=== PATIENT | female | born 1990 | race Caucasian/White ===

== ENCOUNTER 2016-09-03 15:43 | Outpatient (CLI) | payer MEDICAID ==
[2016-09-03 16:52] LABS: APPEARANCE,URINE SLIGHTLY-CLOUDY; BILIRUBIN,URINE NEGATIVE (NEGATIVE); GLUCOSE, URINE NEGATIVE (NEGATIVE); KETONES,URINE TRACE mg/dL (NEGATIVE); LEUKOCYTE ESTERASE,URINE LARGE (NEGATIVE); NITRITE,URINE NEGATIVE (NEGATIVE); PROTEIN,URINE 30 mg/dL (NEGATIVE)
[2016-09-03 17:20] LABS: URINE BARBITURATES SCREEN NEGATIVE; URINE METHADONE SCREEN NEGATIVE; URINE OPIATES LOW NEGATIVE; URINE PHENCYCLIDINE SCREEN NEGATIVE
== END 2016-09-03 17:08 | disposition home or self-care (01) ==
LOC: LC 15:43
PROVIDERS: ATTEND Obstetrics & Gynecology
PROC: 4A1HXCZ Monitoring of Products of Conception, Cardiac Rate, External Approach (ICD-10-PCS; principal; 2016-09-03)
DX: O26.893 Other specified pregnancy related conditions, third trimester (principal); R51 Headache; Z3A.29 29 weeks gestation of pregnancy
CPT/HCPCS: 80307; 81001

== ENCOUNTER 2016-10-24 09:26 | Outpatient (CLI) | payer MEDICAID ==
[2016-10-24 10:14] LABS: ABSOLUTE EOSINOPHILS # (AUTO) 0.1 10^3/uL (0.0-0.6); ABSOLUTE LYMPHOCYTES (AUTO) 1.5 10^3/uL (0.5-4.7); ABSOLUTE MONOCYTES (AUTO) 0.6 10^3/uL (0.1-1.4); ABSOLUTE NEUT (AUTO) 6.8 10^3/uL (1.7-8.2); BASOPHILS % (AUTO) 0.4 % (0-2); EOSINOPHILS % (AUTO) 0.9 % (0-6); HEMATOCRIT 34.8 % (36.0-47.0); HGB HCT DIFFERENCE 1.2; LYMPHOCYTES % (AUTO) 17.2 % (13-45); MEAN CORPUSCULAR HEMOGLOBIN 29.2 pg (27.0-33.4); MEAN CORPUSCULAR HGB CONC 34.5 g/dL (32.0-36.0); MEAN CORPUSCULAR VOLUME 85 fl (80-97); MONOCYTES % (AUTO) 6.3 % (3-13); RED BLOOD COUNT 4.11 10^6/uL (3.72-5.28); RED CELL DISTRIBUTION WIDTH 13.2 % (11.5-14.0); SEGMENTED NEUTROPHILS % (AUTO) 75.2 % (42-78)
--- NOTE | 2016-10-24 10:18 | Non Stress Test Report ---
Non Stress Test Datetime Report Generated by CPN: 10/24/2016 10:18 DEMOGRAPHIC EGA NST: 37.1 INDICATION Indication for Study (NST) Other: pre-e workup MONITORING Monitor Explained: Monitor Explained; Test Explained; Patient Verbalized Understanding Time on Monitor: 10/24/2016 09:41 Time off Monitor: 10/24/2016 10:03 NST Duration: 22 NST INTERVENTIONS NST Interventions: PO Hydration; Reposition Patient Physician Notified NST: J. Lehman CNM BABY A: [id number] BABY A Movement : Present Contraction Frequency : none FHR Baseline : 140 Accelerations : 15X15 Decelerations : None Variability : Moderate 6-25bpm NST Review: Meets Criteria for Reactive NST NST Review and Verified By : Chelsie Mcdonald RN NST Results: Reactive NST REPORT Report Trigger: Send Report
[2016-10-24 10:25] LABS: APPEARANCE,URINE SLIGHTLY-CLOUDY; BILIRUBIN,URINE NEGATIVE (NEGATIVE); GLUCOSE, URINE NEGATIVE (NEGATIVE); KETONES,URINE TRACE mg/dL (NEGATIVE); LEUKOCYTE ESTERASE,URINE MODERATE (NEGATIVE); NITRITE,URINE NEGATIVE (NEGATIVE); PROTEIN,URINE 30 mg/dL (NEGATIVE); URINE SPECIFIC GRAVITY 1.032
[2016-10-24 10:41] LABS: ALANINE AMINOTRANSFERASE 19 U/L (9-52); ALBUMIN 3.4 g/dL (3.5-5.0); ALKALINE PHOSPHATASE 80 U/L (38-126); ANION GAP 10 (5-19); ASPARTATE AMINO TRANSFERASE 11 U/L (14-36); BILIRUBIN,DIRECT 0.2 mg/dL (0.0-0.4); BLOOD UREA NITROGEN 8 mg/dL (7-20); CALCIUM 9.2 mg/dL (8.4-10.2); CARBON DIOXIDE 21 mmol/L (22-30); CHLORIDE 109 mmol/L (98-107); CREATININE RESULT 0.46 mg/dL (0.52-1.25); GLUCOSE 85 mg/dL (75-110); LDH 370 U/L (313-618); SODIUM 139.7 mmol/L (137-145); TOTAL PROTEIN 6.3 g/dL (6.3-8.2); URIC ACID 3.8 mg/dL (2.5-6.2)
[2016-10-24 10:53] LABS: URINE BARBITURATES SCREEN NEGATIVE; URINE METHADONE SCREEN NEGATIVE; URINE OPIATES LOW NEGATIVE; URINE PHENCYCLIDINE SCREEN NEGATIVE
--- NOTE | 2016-10-24 14:02 | L&D Discharge Summary ---
OB Discharge Summary Datetime Report Generated by CPN: 10/24/2016 14:01 DISCHARGE DIAGNOSIS Diagnoses/Symptoms Other: No preeclampsia, not in labor, reactive NST Number of Babies in Womb: 1 Parity: 3 DIET/ACTIVITY/RESTRICTIONS Diet: Regular Activity: Normal Activity TEACHING/INSTRUCTIONS/REFERRALS Instructions Given To: Pt Instructions Understood: Patient Verbalized Understanding Referrals: None Educational Materials- Other: dehydration, pre-e, 24 hr urine DISCHARGE INFORMATION Discharged AMA: No Discharge Date/Time: 10/24/2016 10:57 Discharged To: Home Discharge Provider Name: Dr Kipen Accompanied By: self Discharge Method: Ambulatory Condition: Stable FOLLOW UP INFORMATION Follow Up With: [facility] Follow Up On: As Scheduled Follow Up Phone Number: [facility] -
--- NOTE | 2016-10-25 22:47 | L&D Current Admission ---
Current Admit Datetime Report Generated by CPN: 10/25/2016 22:45 ADMISSION INFORMATION Chief Complaint: Pt arrived from office for pre-eclampsia workup (10/24/2016 09:47:Gretchen Mcdonald RN)
--- NOTE | 2016-10-25 22:47 | Antepartum Discharge Summary ---
Antepartum DC Datetime Report Generated by CPN: 10/25/2016 22:45 DIET/ACTIVITY/RESTRICTIONS Diet: Regular (10/24/2016 10:58:Gretchen Mcdonald RN) Activity: Normal Activity (10/24/2016 10:58:Gretchen Mcdonald RN) TEACHING/INSTRUCTIONS/REFERRALS Instructions Given To: Pt (10/24/2016 10:58:Gretchen Mcdonald RN) Instructions Understood: Patient Verbalized Understanding (10/24/2016 10:58:Gretchen Mcdonald, RN) Referrals: None (10/24/2016 10:58:Gretchen Mcdonald RN) Educational Materials- Other: dehydration, pre-e, 24 hr urine (10/24/2016 10:58:Gretchen Mcdonald RN) DISCHARGE INFORMATION Discharged AMA: No (10/24/2016 10:58:Gretchen Mcdonald RN) Discharge Date/Time: 10/24/2016 10:57 (10/24/2016 10:58:Gretchen Mcdonald RN) Discharged To: Home (10/24/2016 10:58:Gretchen Mcdonald RN) Discharge Provider Name: Dr Wang (10/24/2016 10:58:Gretchen Mcdonald RN) Accompanied By: self (10/24/2016 10:58:Gretchen Mcdonald RN) Discharge Method: Ambulatory (10/24/2016 10:58:Gretchen Mcdonald RN) Condition: Stable (10/24/2016 10:58:Gretchen Mcdonald RN) FOLLOW UP INFORMATION Follow Up With: [facility] (10/24/2016 10:58:Gretchen Mcdonald RN) Follow Up On: As Scheduled (10/24/2016 10:58:Gretchen Mcdonald RN) Follow Up Phone Number: [facility] - (10/24/2016 10:58:Gretchen Mcdonald RN)
--- NOTE | 2016-10-25 22:47 | L&D Discharge Summary ---
OB Discharge Summary Datetime Report Generated by CPN: 10/25/2016 22:45 DISCHARGE DIAGNOSIS Diagnoses/Symptoms Other: No preeclampsia, not in labor, reactive NST Gestation: 37.1 Number of Babies in Womb: 1 Parity: 3 DIET/ACTIVITY/RESTRICTIONS Diet: Regular Activity: Normal Activity TEACHING/INSTRUCTIONS/REFERRALS Instructions Given To: Pt Instructions Understood: Patient Verbalized Understanding Referrals: None Educational Materials- Other: dehydration, pre-e, 24 hr urine DISCHARGE INFORMATION Discharged AMA: No Discharge Date/Time: 10/24/2016 10:57 Discharged To: Home Discharge Provider Name: Dr Wang Accompanied By: self Discharge Method: Ambulatory Condition: Stable FOLLOW UP INFORMATION Follow Up With: [facility] Follow Up On: As Scheduled Follow Up Phone Number: [facility] -
--- NOTE | 2016-10-25 22:47 | L&D General Admission ---
General Admit Datetime Report Generated by CPN: 10/25/2016 22:45 INFORMATION Patient Age: 25 (09/03/2016 15:44:QS system process) EDC: 11/13/2016 00:00 (10/24/2016 09:49:Gretchen Mcdonald RN) : 7 (10/24/2016 09:49:Gretchen Mcdonald RN) Para: 3 (10/24/2016 09:49:Gretchen Mcdonald RN) Term: 3 (10/24/2016 09:49:Gretchen Mcdonald RN) : 0 (10/24/2016 09:49:Gretchen Mcdonald RN) Spontaneous Abortions: 3 (10/24/2016 09:49:Gretchen Mcdonald RN) Induced Abortions: 0 (10/24/2016 09:49:Gretchen Mcdonald RN) Livin (10/24/2016 09:49:Gretchen Mcdonald RN) Cesareans: 0 (10/24/2016 09:49:Gretchen Mcdonald RN) VBACs: 0 (10/24/2016 09:49:Gretchen Mcdonald RN) Ectopic: 0 (10/24/2016 09:49:Gretchen Mcdonald RN) Multiple Births: 0 (10/24/2016 09:49:Gretchen Mcdonald RN) Baby, Number in Womb: 1 (10/24/2016 09:49:Gretchen Mcdonald RN) CARE Primary It 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: [email or web address] (10/24/2016 09:49:Gretchen Mcdonald RN) Height (in): 65 (10/24/2016 09:35:QS system process) Height (in): 64 (09/03/2016 16:54:QS system process) ALLERGIES Medication Allergy: No (10/24/2016 09:49:Gretchen Mcdonald RN) Medication Allergies: nickel/KS/rash (10/24/2016) (10/24/2016 09:35:QS system process) Medication Allergies: nickel/KS/rash (06/09/2015) (09/03/2016 15:44:QS system process) Latex Allergy: No Latex Allergies (10/24/2016 09:49:Gretchen Mcdonald RN) COMMUNICATION Primary Language: Lithuanian (10/24/2016 09:49:Gretchen Mcdonald RN) Medical Tx Preferred Language: Lithuanian (10/24/2016 09:49:Gretchen Mcdonald RN) DEMOGRAPHICS Address: [address] [place] [id number] (09/03/2016 15:44:QS system process) Zipcode: [phone] (09/03/2016 15:44:QS system process) Home (09/03/2016 15:44:QS system process) SSN: [id number] (09/03/2016 15:44:QS system process) Next of Kin Name: ELFEGO KONG (09/03/2016 15:44:QS system process) Next of Kin (09/03/2016 15:44:QS system process) Next of Kin Relationship: SPO (09/03/2016 15:44:QS system process) Date of : 1990 (09/03/2016 15:44:QS system process) Marital Status: (09/03/2016 15:44:QS system process) Sex: Female (09/03/2016 15:44:QS system process) Race: (09/03/2016 15:44:QS system process) Ethnicity: Non- or (09/03/2016 15:44:QS system process) Restorationism: None (09/03/2016 15:44:QS system process) DRUG AND ALCOHOL USE Alcohol: No (10/24/2016 09:49:Gretchen Mcdonald RN) Cigarettes: Current Some Day Smoker. [id number] (10/24/2016 09:49:Gretchen Mcdonald RN) Average Cigarettes Smoked: < 5 per day (10/24/2016 09:49:Gretchen Mcdonald RN) Advised to Stop Smoking: Yes (10/24/2016 09:49:Gretchen Mcdonald RN) Marijuana: No (10/24/2016 09:49:Gretchen Mcdonald RN) Cocaine: No (10/24/2016 09:49:Gretchen Mcdonald RN) Other Illicit Drugs: No (10/24/2016 09:49:Gretchen Mcdonald RN) VACCINE HISTORY Influenza Vaccine: No (10/24/2016 09:49:Gretchen Mcdonald RN) Pneumococcal Vaccine: No (10/24/2016 09:49:Gretchen Mcdonald RN) Tetanus Vaccine: No (10/24/2016 09:49:Gretchen Mcdonald RN) Tdap Vaccine: No (10/24/2016 09:49:Gretchen Mcdonald RN) Hepatitis B Vaccine: No (10/24/2016 09:49:Gretchen Mcdonald RN) Salt Grinder: [facility] (10/24/2016 09:49:Gretchen Mcdonald RN) Feeding Preference: Breast (10/24/2016 09:49:Gretchen Mcdonald RN) Benefit of Breast Feed Discussed: Yes (10/24/2016 09:49:Gretchen Mcdonald RN) Circumcision: N/A (10/24/2016 09:49:Gretchen Mcdonald RN) Classes Attended: No (10/24/2016 09:49:Gretchen Mcdonald RN) Tubal Ligation: No (10/24/2016 09:49:Gretchen Mcdonald RN) Tubal Authorization Signed: N/A (10/24/2016 09:49:Gretchen Mcdonald RN) Consent: N/A (10/24/2016 09:49:Gretchen Mcdonald RN) Consent Signed: N/A (10/24/2016 09:49:Gretchen Mcdonald RN) Pain Management Plans: None (10/24/2016 09:49:Gretchen Mcdonald RN) Other Labor and Delivery Plans: wants to try without Pitocin (10/24/2016 09:49:Gretchen Mcdonald RN) Support Person: Elfego Kong (10/24/2016 09:49:Gretchen Mcdonald RN) Support Person Relationship: (10/24/2016 09:49:Gretchen Mcdonald RN) Cultural/Spritual Practice: No (10/24/2016 09:49:Gretchen Mcdonald RN) Spir/Cult Dietary Needs: No (10/24/2016 09:49:Gretchen Mcdonald RN) LIVING SITUATION/DISCHARGE PLAN Living Arrangements: House (10/24/2016 09:49:Gretchen Mcdonald RN) Adequate Access to:: Electric; Heat; Refrigeration; Plumbing/Running water; Phone; Transportation (10/24/2016 09:49:Gretchen Mcdonald RN) WIC Program: Yes (10/24/2016 09:49:Gretchen Mcdonald RN) 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: ALEN (10/24/2016 09:49:Gretchen Mcdonald RN) Person to Help after Discharge: ALEN (10/24/2016 09:49:Gretchen Mcdonald RN) Currently Using Commun Resources: No (10/24/2016 09:49:Gretchen Mcdonald RN) Outside Agency/Studio Camera Operator: No (10/24/2016 09:49:Gretchen Mcdonald RN) Car Seat for Discharge: Yes (10/24/2016 09:49:Gretchen Mcdonald RN) Adoption Requested: No (10/24/2016 09:49:Gretchen Mcdonald RN) Pt Contact w/ Post : N/A (10/24/2016 09:49:Gretchen Mcdonald RN) LABS Blood Type: A Positive (10/24/2016 09:49:Gretchen Mcdonald RN) Antibody Screen: negative (10/24/2016 09:49:Gretchen Mcdonald RN) Hemoglobin: 12.0 (10/24/2016 09:56:QS system process) Hematocrit: 34.8 L (10/24/2016 09:56:QS system process) MCV: 85 (10/24/2016 09:56:QS system process) RPR/VDRL: Nonreactive (10/24/2016 09:49:Gretchen Mcdonald RN) HIV Exposure Test: Negative (10/24/2016 09:49:Gretchen Mcdonald RN) Hepatitis B: Negative (10/24/2016 09:49:Gretchen Mcdonald RN) Rubella: Immune (10/24/2016 09:49:Gretchen Mcdonald RN) Varicella: Non Susceptible (10/24/2016 09:49:Gretchen Mcdonald RN) OB/PREVIOUS HISTORY Previous Procedures: Ultrasound; NST (10/24/2016 09:49:Gretchen Mcdonald RN) Current Procedures: Ultrasound; NST (10/24/2016 09:49:Gretchen Mcdonald RN) History of Previous : No (10/24/2016 09:49:Gretchen Mcdonald RN) History of Gestational Diabetes: No (10/24/2016 09:49:Gretchen Mcdonald RN) History of PIH: Yes (10/24/2016 09:49:Gretchen Mcdonald RN) History of Incompetent Cervix: No (10/24/2016 09:49:Gretchen Mcdonald RN) History of Placenta Previa/Abrup: No (10/24/2016 09:49:Gretchen Mcdonald RN) History of Macrosomia: No (10/24/2016 09:49:Gretchen Mcdonald RN) History of IUGR: No (10/24/2016 09:49:Gretchen Mcdonald RN) History of Hemorrhage: No (10/24/2016 09:49:Gretchen Mcdonald RN) History of Loss/Stillborn: No (10/24/2016 09:49:Gretchen Mcdonald RN) History of : No (10/24/2016 09:49:Gretchen Mcdonald RN) History of D (Rh) Sensitization: No (10/24/2016 09:49:Gretchen Mcdonald RN) History Recurrent Loss/Stillborn: No (10/24/2016 09:49:Gretchen Mcdonald RN) History Depression/PP Depression: Yes (10/24/2016 09:49:Gretchen Mcdonald RN) History of Uterine Anomaly/TYREL: No (10/24/2016 09:49:Gretchen Mcdonald RN) History of Infertility: No (10/24/2016 09:49:Gretchen Mcdonald RN) History of ART Treatment: No (10/24/2016 09:49:Gretchen Mcdonald RN) History of TYREL: No (10/24/2016 09:49:Gretchen Mcdonald RN) Comments Obstetrical History: G1: 2007 G2: 2008 G3: 04/2009, induced pre-eclampsia G4: 01/2011 G5: SAB 2014 G6: 05/2015, HTN G7: current (10/24/2016 09:49:Gretchen Mcdonald RN) MEDICAL HISTORY Med Hx Diabetes: No (10/24/2016 09:49:Gretchen Mcdonald RN) Med Hx Hypertension: No (10/24/2016 09:49:Gretchen Mcdonald RN) Med Hx Heart Disease: No (10/24/2016 09:49:Gretchen Mcdonald RN) Med Hx Autoimmune Disorder: No (10/24/2016 09:49:Gretchen Mcdonald RN) Med Hx Kidney Disease/UTI: Yes (10/24/2016 09:49:Grecthen Mcdonald RN) Med Hx Neurologic/Epilepsy: No (10/24/2016 09:49:Gretchen Mcdonald RN) Med Hx Psychiatric Disorders: No (10/24/2016 09:49:Gretchen Mcdonald RN) Med Hx Hepatitis/Liver Disease: No (10/24/2016 09:49:Gretchen Mcdonald RN) Med Hx Varicosities/Phlebitis: No (10/24/2016 09:49:Gretchen Mcdonald RN) Med Hx Thyroid Dysfunction: No (10/24/2016 09:49:Gretchen Mcdonald RN) Med Hx Trauma/Violence: No (10/24/2016 09:49:Gretchen Mcdonald RN) Med Hx Blood Transfusion: No (10/24/2016 09:49:Gretchen Mcdonald RN) Med Hx Pulmonary (Asthma,TB): No (10/24/2016 09:49:Gretchen Mcdonald RN) Med Hx Breast: No (10/24/2016 09:49:Gretchen Mcdonald RN) Med 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 (10/24/2016 09:49:Gretchen Mcdonald RN) Med Hx Hospitalization/Surgery: Yes (10/24/2016 09:49:Gretchen Mcdonald RN) Med Hx Anesthetic Complications: No (10/24/2016 09:49:Gretchen Mcdonald RN) Med Hx Abnormal Pap Smear: No (10/24/2016 09:49:Gretchen Mcdonald RN) Other Medical Diseases: No (10/24/2016 09:49:Gretchen Mcdonald RN) Med Hx Significant Family Hx: No (10/24/2016 09:49:Gretchen Mcdonald RN) Details of Med/Surg Hx: tonsillectomy, D_C, tongue clipped for tongue tie, close spaced , chronic uti's, depression, depression, smoker, 2 LEEPS, CF carrier (10/24/2016 09:49:Gretchen Mcdonald RN) INFECTIOUS HISTORY Inf Hx Gonorrhea: No (10/24/2016 09:49:Gretchen Mcdonald RN) Inf Hx Chlamydia: No (10/24/2016 09:49:Gretchen Mcdonald RN) Inf Hx Syphilis: No (10/24/2016 09:49:Gretchen Mcdonald RN) Inf Hx HIV/AIDS: No (10/24/2016 09:49:Gretchen Mcdonald RN) Inf Hx Human Papilloma Virus: No (10/24/2016 09:49:Gretchen Mcdonald RN) Inf Hx Pt/Partner Genital Herpes: No (10/24/2016 09:49:Gretchen Mcdonald RN) Inf Hx Tuberculosis/Exposure: No (10/24/2016 09:49:Gretchen Mcdonald RN) Inf Hx Hepatitis B,C: No (10/24/2016 09:49:Gretchen Mcdonald RN) Inf Hx Rash or Viral Illness: No (10/24/2016 09:49:Gretchen Mcdonald RN) GENETIC HISTORY Gen Hx Age >=35 at KARIS: No (10/24/2016 09:49:Gretchen Mcdonald RN) Gen Hx Thalassemia: No (10/24/2016 09:49:Gretchen Mcdonald RN) Gen Hx Congenital Heart Defect: No (10/24/2016 09:49:Gretchen Mcdonald RN) Gen Hx Neural Tube Defect: No (10/24/2016 09:49:Gretchen Mcdonald RN) Gen Hx Down's Syndrome: No (10/24/2016 09:49:Gretchen Mcdonald RN) Gen Hx Merlin-Sachs: No (10/24/2016 09:49:Gretchen Mcdonald RN) Gen Hx Donn: No (10/24/2016 09:49:Gretchen Mcdonald RN) Gen Hx Familial Dysautonomia: No (10/24/2016 09:49:Gretchen Mcdonald RN) Gen Hx Sickle Cell Disease/Trait: No (10/24/2016 09:49:Gretchen Mcdonald RN) Gen Hx Hemophilia/Blood Disorder: No (10/24/2016 09:49:Gretchen Mcdonald RN) Gen Hx Muscular Dystrophy: No (10/24/2016 09:49:Gretchen Mcdonald RN) Gen Hx Cystic Fibrosis: Yes (10/24/2016 09:49:Gretchen Mcdonald RN) Gen Hx Huntingtons Chorea: No (10/24/2016 09:49:Gretchen Mcdonald RN) Gen Hx Mental Retardation/Autism: No (10/24/2016 09:49:Gretchen Mcdonald RN) Gen Hx Tested for Fragile X: No (10/24/2016 09:49:Gretchen Mcdonald RN) Gen Hx Other Inher/Chromosomal: No (10/24/2016 09:49:Gretchen Mcdonald RN) Gen Hx Maternal Metabolic DO: No (10/24/2016 09:49:Gretchen Mcdonald RN) Gen Hx Pt Father or FOB Defect: No (10/24/2016 09:49:Gretchen Mcdonald RN) Gen Hx Other Genetic History: No (10/24/2016 09:49:Gretchen Mcdonald RN) Gen Hx Drugs/Meds since LMP: Yes (10/24/2016 09:49:Gretchen Mcdonald RN) Gen Hx Medications: PNV, Nexium (10/24/2016 09:49:Gretchen Mcdonald RN) Details of Genetic History: Cousin has CF, pt is carrier, unknown if FOB is carrier (10/24/2016 09:49:Gretchen Mcdonald RN)
--- NOTE | 2016-10-26 04:47 | L&D Admission Assessment ---
LD ADM ASMT Datetime Report Generated by CPN: 10/26/2016 04:45 PATIENT ASSESSMENT Assessment Type: Triage (10/24/2016 09:47:Gretchen Mcdonald RN) WEIGHT Weight (lb): 196 (10/24/2016 09:36:QS system process) Weight (lb): 196 (10/24/2016 09:35:QS system process) Weight (kg): 89.1 (10/24/2016 09:36:QS system process) Weight (kg): 89.1 (10/24/2016 09:35:QS system process) BMI: 32.6 (10/24/2016 09:36:QS system process) BMI: 33.6 (10/24/2016 09:35:QS system process) PAIN Pain Scale: 0 (10/24/2016 09:47:Gretchen Mcdonald RN) Pain Presence: None/Denies (10/24/2016 09:47:Gretchen Mcdonald RN) Pain Type: N/A (10/24/2016 09:47:Gretchen Mcdonald RN) NEURO Level of Consciousness: Fully Conscious (10/24/2016 09:47:Gretchen Mcdonald RN) DTR's/Clonus: DTRs 2+; No Clonus (10/24/2016 09:47:Gretchen Mcdonald RN) Headache: Denies (10/24/2016 09:47:Gretchen Mcdonald RN) Dizziness: No (10/24/2016 09:47:Gretchen Mcdonald RN) Blurred Vision: No (10/24/2016 09:47:Gretchen Mcdonald RN) Extremity Numbness/Tingling : None (10/24/2016 09:47:Gretchen Mcdonald RN) Extremity Movement: Full Range of Motion (10/24/2016 09:47:Gretchen Mcdonald RN) CARDIOVASCULAR Heart Rhythm: Regular (10/24/2016 09:47:Gretchen Mcdonald RN) Nailbeds: [place] (10/24/2016 09:47:Gretchen Mcdonald RN) Capillary Refill: Less than 3 Seconds (10/24/2016 09:47:Gretchen Mcdonald RN) Facial Edema: None (10/24/2016 09:47:Gretchen Mcdonald RN) RESPIRATORY Respiratory Effort: Unlabored; Regular Rhythm; Equal Expansion (10/24/2016 09:47:Gretchen Mcdonald RN) Breath Sounds, Left: Clear and Equal (10/24/2016 09:47:Gretchen Mcdonald RN) Breath Sounds, Right: Clear and Equal (10/24/2016 09:47:Gretchen Mcdonald RN) Cough Productivity: None (10/24/2016 09:47:Gretchen Mcdonald RN) GASTROINTESTINAL Nausea/Vomiting: Present (10/24/2016 09:47:Gretchen Mcdonald RN) Bowel Sounds: Normoactive; All Quadrants (10/24/2016 09:47:Gretchen Mcdonald RN) RUQ Epigastric Pain: Denies (10/24/2016 09:47:Gretchen Mcdonald RN) Bowel Patterns: Diarrhea (10/24/2016 09:47:Gretchen Mcdonald RN) Hemorrhoids: None (10/24/2016 09:47:Gretchen Mcdonald RN) Diet Type: Regular diet (10/24/2016 09:47:Gretchen Mcdonald RN) Last Meal: 10/23/2016 20:30 (10/24/2016 09:47:Gretchen Mcdonald RN) GENITOURINARY Bladder: Nondistended (10/24/2016 09:47:Gretchen Mcdonald RN) Frequency of Urination: No (10/24/2016 09:47:Gretchen Mcdonald RN) Urination Burning: No (10/24/2016 09:47:Gretchen Mcdonald RN) CVA Tenderness: No (10/24/2016 09:47:Gretchen Mcdonald RN) Vaginal Bleeding: None (10/24/2016 09:47:Gretchen Mcdonald RN) Vaginal Discharge Color: N/A (10/24/2016 09:47:Gretchen Mcdonald RN) INTEGUMENTARY Skin Color: Normal for Race (10/24/2016 09:47:Gretchen Mcdonald RN) Skin Temperature: Warm (10/24/2016 09:47:Gretchen Mcdonald RN) Skin Moisture: Dry (10/24/2016 09:47:Gretchen Mcdonald RN) LUI SKIN ASSESSMENT Lui Scale Sensory Perception: No Impairment- Responds to verbal commands. Has no sensory deficit which would limit ability to feel or voice pain or discomfort (10/24/2016 09:47:Gretchen Mcdonald RN) Lui Scale Moisture: Rarely Moist- Skin is usually dry. Linen only requires changing at routine intervals (10/24/2016 09:47:Gretchen Mcdonald RN) Lui Scale Activity: Walks Frequently- Walks outside the room at least twice a day and inside room at least every 2 hours during the day. (10/24/2016 09:47:Gretchen Mcdonald RN) Lui Scale Mobility: No Limitations- Makes major and frequent changes in position without assistance (10/24/2016 09:47:Gretchen Mcdonald RN) Lui Scale Nutrition: Excellent- Eats most of every meal. Never refuses a meal. Usually eats a total of 4 or more servings of meat and dairy products. Occasionally eats between meals. Does not require supplementation (10/24/2016 09:47:Gretchen Mcdonald RN) Lui Scale Friction and Shear: No Apparent Problem- Moves in bed and in chair independently and has sufficient muscle strength to lift up completely during move. Maintains good position in bed or chair at all times (10/24/2016 09:47:Gretchen Mcdonald RN) Lui Scale Total: 23 (10/24/2016 09:47:QS system process) Lui Scale Risk: No Risk of Pressure Ulcer Noted at this Time (10/24/2016 09:47:QS system process) SUPPORT Emotional State: Calm/Relaxed (10/24/2016 09:47:Gretchen Mcdonald RN) SAFETY Call Garcia Within Reach: Yes (10/24/2016 09:47:Gretchen Mcdonald, RN) Side Rails Up: Yes (10/24/2016 09:47:Gretchen Mcdonald RN) Bed Wheels Locked: Yes (10/24/2016 09:47:Gretchen Mcdonald RN) Arm Bands Present: Yes (10/24/2016 09:47:Gretchen Mcdonald RN) FALL SCREEN Fall Risk History of Falling: (0) No (10/24/2016 09:47:Gretchen Mcdonald RN) Fall Risk Secondary Diagnosis: (0) No (10/24/2016 09:47:Gretchen Mcdonald RN) Fall Risk Ambulatory Aid: (0) None/Bedrest/Wheelchair/Nurse Assist (10/24/2016 09:47:Gretchen Mcdonald RN) Fall Risk IV Therapy: (0) No (10/24/2016 09:47:Gretchen Mcdonald RN) Fall Risk Gait: (0) Normal/Bedrest/Immobile (10/24/2016 09:47:Gretchen Mcdonald RN) Fall Risk Mental Status: (0) Oriented to Own Ability (10/24/2016 09:47:Gretchen Mcdonald RN) Fall Risk Score: 0 (10/24/2016 09:47:QS system process) Fall Risk Score Definition: No Risk: No action required (10/24/2016 09:47:QS system process) RECENT TRAVEL/INFECTIOUS DISEASE Recent Exp Communicable Disease: No (10/24/2016 09:47:Gretchen Mcdonald RN) Cough or Fever: No (10/24/2016 09:47:Gretchen Mcdonald RN) Foreign Travel Past 10 Days: No (10/24/2016 09:47:Gretchen Mcdonald RN) Open Wounds or Sores: No (10/24/2016 09:47:Gretchen Mcdonald RN) Prior Antibiotic Resistance Tx: No (10/24/2016 09:47:Gretchen Mcdonald RN) Cultures Obtained: Not Applicable (10/24/2016 09:47:Gretchen Mcdonald RN) Isolation Initiated: No (10/24/2016 09:47:Gretchen Mcdonald RN)
--- NOTE | 2016-10-26 04:47 | Antepartum Discharge Summary ---
Antepartum DC Datetime Report Generated by CPN: 10/26/2016 04:45 DIET/ACTIVITY/RESTRICTIONS Diet: Regular (10/24/2016 10:58:Gretchen Mcdonald RN) Activity: Normal Activity (10/24/2016 10:58:Gretchen Mcdonald RN) TEACHING/INSTRUCTIONS/REFERRALS Instructions Given To: Pt (10/24/2016 10:58:Gretchen Mcdonald RN) Instructions Understood: Patient Verbalized Understanding (10/24/2016 10:58:Gretchen Mcdonald, RN) Referrals: None (10/24/2016 10:58:Gretchen Mcdonald RN) Educational Materials- Other: dehydration, pre-e, 24 hr urine (10/24/2016 10:58:Gretchen Mcdonald RN) DISCHARGE INFORMATION Discharged AMA: No (10/24/2016 10:58:Gretchen Mcdonald RN) Discharge Date/Time: 10/24/2016 10:57 (10/24/2016 10:58:Gretchen Mcdonald RN) Discharged To: Home (10/24/2016 10:58:Gretchen Mcdonald RN) Discharge Provider Name: Dr Wang (10/24/2016 10:58:Gretchen Mcdonald RN) Accompanied By: self (10/24/2016 10:58:Gretchen Mcdonald RN) Discharge Method: Ambulatory (10/24/2016 10:58:Gretchen Mcdonald RN) Condition: Stable (10/24/2016 10:58:Gretchen Mcdonald RN) FOLLOW UP INFORMATION Follow Up With: [facility] (10/24/2016 10:58:Gretchen Mcdonald RN) Follow Up On: As Scheduled (10/24/2016 10:58:Gretchen Mcdonald RN) Follow Up Phone Number: [facility] - (10/24/2016 10:58:Gretchen Mcdonald RN)
--- NOTE | 2016-10-26 04:47 | L&D Current Admission ---
Current Admit Datetime Report Generated by CPN: 10/26/2016 04:45 ADMISSION INFORMATION Chief Complaint: Pt arrived from office for pre-eclampsia workup (10/24/2016 09:47:Gretchen Mcdonald RN)
--- NOTE | 2016-10-26 04:47 | L&D Discharge Summary ---
OB Discharge Summary Datetime Report Generated by CPN: 10/26/2016 04:45 DISCHARGE DIAGNOSIS Diagnoses/Symptoms Other: No preeclampsia, not in labor, reactive NST Gestation: 37.1 Number of Babies in Womb: 1 Parity: 3 DIET/ACTIVITY/RESTRICTIONS Diet: Regular Activity: Normal Activity TEACHING/INSTRUCTIONS/REFERRALS Instructions Given To: Pt Instructions Understood: Patient Verbalized Understanding Referrals: None Educational Materials- Other: dehydration, pre-e, 24 hr urine DISCHARGE INFORMATION Discharged AMA: No Discharge Date/Time: 10/24/2016 10:57 Discharged To: Home Discharge Provider Name: Dr Wang Accompanied By: self Discharge Method: Ambulatory Condition: Stable FOLLOW UP INFORMATION Follow Up With: [facility] Follow Up On: As Scheduled Follow Up Phone Number: [facility] -
--- NOTE | 2016-10-26 04:47 | L&D General Admission ---
General Admit Datetime Report Generated by CPN: 10/26/2016 04:45 INFORMATION Patient Age: 25 (09/03/2016 15:44:QS system process) EDC: 11/13/2016 00:00 (10/24/2016 09:49:Gretchen Mcdonald RN) : 7 (10/24/2016 09:49:Gretchen Mcdonald RN) Para: 3 (10/24/2016 09:49:Gretchen Mcdonald RN) Term: 3 (10/24/2016 09:49:Gretchen Mcdonald RN) : 0 (10/24/2016 09:49:Gretchen Mcdonald RN) Spontaneous Abortions: 3 (10/24/2016 09:49:Gretchen Mcdonald RN) Induced Abortions: 0 (10/24/2016 09:49:Gretchen Mcdonald RN) Livin (10/24/2016 09:49:Gretchen Mcdonald RN) Cesareans: 0 (10/24/2016 09:49:Gretchen Mcdonald RN) VBACs: 0 (10/24/2016 09:49:Gretchen Mcdonald RN) Ectopic: 0 (10/24/2016 09:49:Gretchen Mcdonald RN) Multiple Births: 0 (10/24/2016 09:49:Gretchen Mcdonald RN) Baby, Number in Womb: 1 (10/24/2016 09:49:Gretchen Mcdonald RN) 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: [facility] (10/24/2016 09:49:Gretchen Mcdonald RN) Height (in): 65 (10/24/2016 09:35:QS system process) Height (in): 64 (09/03/2016 16:54:QS system process) ALLERGIES Medication Allergy: No (10/24/2016 09:49:Gretchen Mcdonald RN) Medication Allergies: nickel/NM/rash (10/24/2016) (10/24/2016 09:35:QS system process) Medication Allergies: nickel/NM/rash (06/09/2015) (09/03/2016 15:44:QS system process) Latex Allergy: No Latex Allergies (10/24/2016 09:49:Gretchen Mcdonald RN) COMMUNICATION Primary Language: Spanish (10/24/2016 09:49:Gretchen Mcdonald RN) Medical Tx Preferred Language: Spanish (10/24/2016 09:49:Gretchen Mcdonald RN) DEMOGRAPHICS Address: [address] [place] [id number] (09/03/2016 15:44:QS system process) Zipcode: [phone] (09/03/2016 15:44:QS system process) Home (09/03/2016 15:44:QS system process) SSN: [id number] (09/03/2016 15:44:QS system process) Next of Kin Name: ELFEGO KONG (09/03/2016 15:44:QS system process) Next of Kin (09/03/2016 15:44:QS system process) Next of Kin Relationship: SPO (09/03/2016 15:44:QS system process) Date of : 1990 (09/03/2016 15:44:QS system process) Marital Status: (09/03/2016 15:44:QS system process) Sex: Female (09/03/2016 15:44:QS system process) Race: (09/03/2016 15:44:QS system process) Ethnicity: Non- or (09/03/2016 15:44:QS system process) Restoration: None (09/03/2016 15:44:QS system process) DRUG AND ALCOHOL USE Alcohol: No (10/24/2016 09:49:Gretchen Mcdonald RN) Cigarettes: Current Some Day Smoker. [id number] (10/24/2016 09:49:Gretchen Mcdonald RN) Average Cigarettes Smoked: < 5 per day (10/24/2016 09:49:Gretchen Mcdonald RN) Advised to Stop Smoking: Yes (10/24/2016 09:49:Gretchen Mcdonald RN) Marijuana: No (10/24/2016 09:49:Gretchen Mcdonald RN) Cocaine: No (10/24/2016 09:49:Gretchen Mcdonald RN) Other Illicit Drugs: No (10/24/2016 09:49:Gretchen Mcdonald RN) VACCINE HISTORY Influenza Vaccine: No (10/24/2016 09:49:Gretchen Mcdonald RN) Pneumococcal Vaccine: No (10/24/2016 09:49:Gretchen Mcdonald RN) Tetanus Vaccine: No (10/24/2016 09:49:Gretchen Mcdonald RN) Tdap Vaccine: No (10/24/2016 09:49:Gretchen Mcdonald RN) Hepatitis B Vaccine: No (10/24/2016 09:49:Gretchen Mcdonald RN) 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: [facility] (10/24/2016 09:49:Gretchen Mcdonald RN) Feeding Preference: Breast (10/24/2016 09:49:Gretchen Mcdonald RN) Benefit of Breast Feed Discussed: Yes (10/24/2016 09:49:Gretchen Mcdonald RN) Circumcision: N/A (10/24/2016 09:49:Gretchen Mcdonald RN) Classes Attended: No (10/24/2016 09:49:Gretchen Mcdonald RN) Tubal Ligation: No (10/24/2016 09:49:Gretchen Mcdonald RN) Tubal Authorization Signed: N/A (10/24/2016 09:49:Gretchen Mcdonald RN) Consent: N/A (10/24/2016 09:49:Gretchen Mcdonald RN) Consent Signed: N/A (10/24/2016 09:49:Gretchen Mcdonald RN) Pain Management Plans: None (10/24/2016 09:49:Gretchen Mcdonald RN) Other Labor and Delivery Plans: wants to try without Pitocin (10/24/2016 09:49:Gretchen Mcdonald RN) Support Person: Elfego Kong (10/24/2016 09:49:Gretchen Mcdonald RN) Support Person Relationship: (10/24/2016 09:49:Gretchen Mcdonald RN) Cultural/Spritual Practice: No (10/24/2016 09:49:Gretchen Mcdonald RN) Spir/Cult Dietary Needs: No (10/24/2016 09:49:Gretchen Mcdonald RN) LIVING SITUATION/DISCHARGE PLAN Living Arrangements: House (10/24/2016 09:49:Gretchen Mcdonald RN) Adequate Access to:: Electric; Heat; Refrigeration; Plumbing/Running water; Phone; Transportation (10/24/2016 09:49:Gretchen Mcdonald RN) WIC Program: Yes (10/24/2016 09:49:Gretchen Mcdonald RN) 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[employer] Person: ALEN (10/24/2016 09:49:Gretchen Mcdonald RN) Person to Help after Discharge: ALEN (10/24/2016 09:49:Gretchen Mcdonald RN) Currently Using Commun Resources: No (10/24/2016 09:49:Gretchen Mcdonald RN) Outside Agency/Assistant Infant Toddler Teacher: No (10/24/2016 09:49:Gretchen Mcdonald RN) Car Seat for Discharge: Yes (10/24/2016 09:49:Gretchen Mcdonald RN) Adoption Requested: No (10/24/2016 09:49:Gretchen Mcdonald RN) Pt Contact w/ Post : N/A (10/24/2016 09:49:Gretchen Mcdonald RN) LABS Blood Type: A Positive (10/24/2016 09:49:Gretchen Mcdonald RN) Antibody Screen: negative (10/24/2016 09:49:Gretchen Mcdonald RN) Hemoglobin: 12.0 (10/24/2016 09:56:QS system process) Hematocrit: 34.8 L (10/24/2016 09:56:QS system process) MCV: 85 (10/24/2016 09:56:QS system process) RPR/VDRL: Nonreactive (10/24/2016 09:49:Gretchen Mcdonald RN) HIV Exposure Test: Negative (10/24/2016 09:49:Gretchen Mcdonald RN) Hepatitis B: Negative (10/24/2016 09:49:Gretchen Mcdonald RN) Rubella: Immune (10/24/2016 09:49:Gretchen Mcdonald RN) Varicella: Non Susceptible (10/24/2016 09:49:Gretchen Mcdonald RN) OB/PREVIOUS HISTORY Previous Procedures: Ultrasound; NST (10/24/2016 09:49:Gretchen Mcdonald RN) Current Procedures: Ultrasound; NST (10/24/2016 09:49:Gretchen Mcdonald RN) History of Previous : No (10/24/2016 09:49:Gretchen Mcdonald RN) History of Gestational Diabetes: No (10/24/2016 09:49:Gretchen Mcdonald RN) History of PIH: Yes (10/24/2016 09:49:Gretchen Mcdonald RN) History of Incompetent Cervix: No (10/24/2016 09:49:Gretchen Mcdonald RN) History of Placenta Previa/Abrup: No (10/24/2016 09:49:Gretchen Mcdonald RN) History of Macrosomia: No (10/24/2016 09:49:Gretchen Mcdonald RN) History of IUGR: No (10/24/2016 09:49:Gretchen Mcdonald RN) History of Hemorrhage: No (10/24/2016 09:49:Gretchen Mcdonald RN) History of Loss/Stillborn: No (10/24/2016 09:49:Gretchen Mcdonald RN) History of : No (10/24/2016 09:49:Gretchen Mcdonald RN) History of D (Rh) Sensitization: No (10/24/2016 09:49:Gretchen Mcdonald RN) History Recurrent Loss/Stillborn: No (10/24/2016 09:49:Gretchen Mcdonald RN) History Depression/PP Depression: Yes (10/24/2016 09:49:Gretchen Mcdonald RN) History of Uterine Anomaly/TYREL: No (10/24/2016 09:49:Gretchen Mcdonald RN) History of Infertility: No (10/24/2016 09:49:Gretchen Mcdonald RN) History of ART Treatment: No (10/24/2016 09:49:Gretchen Mcdonald RN) History of TYREL: No (10/24/2016 09:49:Gretchen Mcdonald RN) Comments Obstetrical History: G1: 2007 G2: 2008 G3: 04/2009, induced pre-eclampsia G4: 01/2011 G5: SAB 2014 G6: 05/2015, HTN G7: current (10/24/2016 09:49:Gretchen Mcdonald RN) MEDICAL HISTORY Med Hx Diabetes: No (10/24/2016 09:49:Gretchen Mcdonald RN) Med Hx Hypertension: No (10/24/2016 09:49:Gretchen Mcdonald RN) Med Hx Heart Disease: No (10/24/2016 09:49:Gretchen Mcdonald RN) Med Hx Autoimmune Disorder: No (10/24/2016 09:49:Gretchen Mcdonald RN) Med Hx Kidney Disease/UTI: Yes (10/24/2016 09:49:Gretchen Mcdonald RN) Med Hx Neurologic/Epilepsy: No (10/24/2016 09:49:Gretchen Mcdonald RN) Med Hx Psychiatric Disorders: No (10/24/2016 09:49:Gretchen Mcdonald RN) Med Hx Hepatitis/Liver Disease: No (10/24/2016 09:49:Gretchen Mcdonald RN) Med Hx Varicosities/Phlebitis: No (10/24/2016 09:49:Gretchen Mcdonald RN) Med Hx Thyroid Dysfunction: No (10/24/2016 09:49:Gretchen Mcdonald RN) Med Hx Trauma/Violence: No (10/24/2016 09:49:Gretchen Mcdonald RN) Med Hx Blood Transfusion: No (10/24/2016 09:49:Gretchen Mcdonald RN) Med Hx Pulmonary (Asthma,TB): No (10/24/2016 09:49:Gretchen Mcdonald RN) Med Hx Breast: No (10/24/2016 09:49:Gretchen Mcdonald RN) Med Hx BLOCKER POLISHING Surgery: Yes (10/24/2016 09:49:Gretchen Mcdonald RN) Med Hx Hospitalization/Surgery: Yes (10/24/2016 09:49:Gretchen Mcdonald RN) Med Hx Anesthetic Complications: No (10/24/2016 09:49:Gretchen Mcdonald RN) Med Hx Abnormal Pap Smear: No (10/24/2016 09:49:Gretchen Mcdonald RN) Other Medical Diseases: No (10/24/2016 09:49:Gretchen Mcdonald RN) Med Hx Significant Family Hx: No (10/24/2016 09:49:Gretchen Mcdonald RN) Details of Med/Surg Hx: tonsillectomy, D_C, tongue clipped for tongue tie, close spaced , chronic uti's, depression, depression, smoker, 2 LEEPS, CF carrier (10/24/2016 09:49:Gretchen Mcdonald RN) INFECTIOUS HISTORY Inf Hx Gonorrhea: No (10/24/2016 09:49:Gretchen Mcodnald RN) Inf Hx Chlamydia: No (10/24/2016 09:49:Gretchen Mcdonald RN) Inf Hx Syphilis: No (10/24/2016 09:49:Gretchen Mcdonald RN) Inf Hx HIV/AIDS: No (10/24/2016 09:49:Gretchen Mcdonald RN) Inf Hx Human Papilloma Virus: No (10/24/2016 09:49:Gretchen Mcdonald RN) Inf Hx Pt/Partner Genital Herpes: No (10/24/2016 09:49:Gretchen Mcdonald RN) Inf Hx Tuberculosis/Exposure: No (10/24/2016 09:49:Gretchen Mcdonald RN) Inf Hx Hepatitis B,C: No (10/24/2016 09:49:Gretchen Mcdonald RN) Inf Hx Rash or Viral Illness: No (10/24/2016 09:49:Gretchen Mcdonald RN) GENETIC HISTORY Gen Hx Age >=35 at KARIS: No (10/24/2016 09:49:Gretchen Mcdonald RN) Gen Hx Thalassemia: No (10/24/2016 09:49:Gretchen Mcdonald RN) Gen Hx Congenital Heart Defect: No (10/24/2016 09:49:Gretchen Mcdonald RN) Gen Hx Neural Tube Defect: No (10/24/2016 09:49:Gretchen Mcdonald RN) Gen Hx Down's Syndrome: No (10/24/2016 09:49:Gretchen Mcdonald RN) Gen Hx Merlin-Sachs: No (10/24/2016 09:49:Gretchen Mcdonald RN) Gen Hx Donn: No (10/24/2016 09:49:Gretchen Mcdonald RN) Gen Hx Familial Dysautonomia: No (10/24/2016 09:49:Gretchen Mcdonald RN) Gen Hx Sickle Cell Disease/Trait: No (10/24/2016 09:49:Gretchen Mcdonald RN) Gen Hx Hemophilia/Blood Disorder: No (10/24/2016 09:49:Gretchen Mcdonald RN) Gen Hx Muscular Dystrophy: No (10/24/2016 09:49:Gretchen Mcdonald RN) Gen Hx Cystic Fibrosis: Yes (10/24/2016 09:49:Gretchen Mcdonald RN) Gen Hx Huntingtons Chorea: No (10/24/2016 09:49:Gretchen Mcdonald RN) Gen Hx Mental Retardation/Autism: No (10/24/2016 09:49:Gretchen Mcdonald RN) Gen Hx Tested for Fragile X: No (10/24/2016 09:49:Gretchen Mcdonald RN) Gen Hx Other Inher/Chromosomal: No (10/24/2016 09:49:Gretchen Mcdonald RN) Gen Hx Maternal Metabolic DO: No (10/24/2016 09:49:Gretchen Mcdonald RN) Gen Hx Pt Father or FOB Defect: No (10/24/2016 09:49:Gretchen Mcdonald RN) Gen Hx Other Genetic History: No (10/24/2016 09:49:Gretchen Mcdonald RN) Gen Hx Drugs/Meds since LMP: Yes (10/24/2016 09:49:Gretchen Mcdonald RN) Gen Hx Medications: PNV, Nexium (10/24/2016 09:49:Gretchen Mcdonald RN) Details of Genetic History: Cousin has CF, pt is carrier, unknown if FOB is carrier (10/24/2016 09:49:Gretchen Mcdonald RN)
--- NOTE | 2016-10-26 10:47 | L&D Discharge Summary ---
OB Discharge Summary Datetime Report Generated by CPN: 10/26/2016 10:45 DISCHARGE DIAGNOSIS Diagnoses/Symptoms Other: No preeclampsia, not in labor, reactive NST Gestation: 37.1 Number of Babies in Womb: 1 Parity: 3 DIET/ACTIVITY/RESTRICTIONS Diet: Regular Activity: Normal Activity TEACHING/INSTRUCTIONS/REFERRALS Instructions Given To: Pt Instructions Understood: Patient Verbalized Understanding Referrals: None Educational Materials- Other: dehydration, pre-e, 24 hr urine DISCHARGE INFORMATION Discharged AMA: No Discharge Date/Time: 10/24/2016 10:57 Discharged To: Home Discharge Provider Name: Dr Wang Accompanied By: self Discharge Method: Ambulatory Condition: Stable FOLLOW UP INFORMATION Follow Up With: [facility] Follow Up On: As Scheduled Follow Up Phone Number: [facility] -
--- NOTE | 2016-10-26 10:47 | Antepartum Discharge Summary ---
Antepartum DC Datetime Report Generated by CPN: 10/26/2016 10:45 DIET/ACTIVITY/RESTRICTIONS Diet: Regular (10/24/2016 10:58:Gretchen Mcdonald RN) Activity: Normal Activity (10/24/2016 10:58:Gretchen Mcdonald RN) TEACHING/INSTRUCTIONS/REFERRALS Instructions Given To: Pt (10/24/2016 10:58:Gretchen Mcdonald RN) Instructions Understood: Patient Verbalized Understanding (10/24/2016 10:58:Gretchen Mcdonald, RN) Referrals: None (10/24/2016 10:58:Gretchen Mcdonald RN) Educational Materials- Other: dehydration, pre-e, 24 hr urine (10/24/2016 10:58:Gretchen Mcdonald RN) DISCHARGE INFORMATION Discharged AMA: No (10/24/2016 10:58:Gretchen Mcdonald RN) Discharge Date/Time: 10/24/2016 10:57 (10/24/2016 10:58:Gretchen Mcdonald RN) Discharged To: Home (10/24/2016 10:58:Gretchen Mcdonald RN) Discharge Provider Name: Dr Wang (10/24/2016 10:58:Gretchen Mcdonald RN) Accompanied By: self (10/24/2016 10:58:Gretchen Mcdonald RN) Discharge Method: Ambulatory (10/24/2016 10:58:Gretchen Mcdonald RN) Condition: Stable (10/24/2016 10:58:Gretchen Mcdonald RN) FOLLOW UP INFORMATION Follow Up With: [facility] (10/24/2016 10:58:Gretchen Mcdonald RN) Follow Up On: As Scheduled (10/24/2016 10:58:Gretchen Mcdonald RN) Follow Up Phone Number: [facility] - (10/24/2016 10:58:Gretchen Mcdonald RN)
--- NOTE | 2016-10-26 10:47 | L&D Current Admission ---
Current Admit Datetime Report Generated by CPN: 10/26/2016 10:45 ADMISSION INFORMATION Chief Complaint: Pt arrived from office for pre-eclampsia workup (10/24/2016 09:47:Gretchen Mcdonald RN)
--- NOTE | 2016-10-26 10:47 | L&D General Admission ---
General Admit Datetime Report Generated by CPN: 10/26/2016 10:45 INFORMATION Patient Age: 25 (09/03/2016 15:44:QS system process) EDC: 11/13/2016 00:00 (10/24/2016 09:49:Gretchen Mcdonald RN) : 7 (10/24/2016 09:49:Gretchen Mcdonald RN) Para: 3 (10/24/2016 09:49:Gretchen Mcdonald RN) Term: 3 (10/24/2016 09:49:Gretchen Mcdonald RN) : 0 (10/24/2016 09:49:Gretchen Mcdonald RN) Spontaneous Abortions: 3 (10/24/2016 09:49:Gretchen Mcdonald RN) Induced Abortions: 0 (10/24/2016 09:49:Gretchen Mcdonald RN) Livin (10/24/2016 09:49:Gretchen Mcdonald RN) Cesareans: 0 (10/24/2016 09:49:Gretchen Mcdonald RN) VBACs: 0 (10/24/2016 09:49:Gretchen Mcdonald RN) Ectopic: 0 (10/24/2016 09:49:Gretchen Mcdonald RN) Multiple Births: 0 (10/24/2016 09:49:Gretchen Mcdonald RN) Baby, Number in Womb: 1 (10/24/2016 09:49:Gretchen Mcdonald RN) 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: [employer] (10/24/2016 09:49:Gretchen Mcdonald RN) Height (in): 65 (10/24/2016 09:35:QS system process) Height (in): 64 (09/03/2016 16:54:QS system process) ALLERGIES Medication Allergy: No (10/24/2016 09:49:Gretchen Mcdonald RN) Medication Allergies: nickel/VT/rash (10/24/2016) (10/24/2016 09:35:QS system process) Medication Allergies: nickel/VT/rash (06/09/2015) (09/03/2016 15:44:QS system process) Latex Allergy: No Latex Allergies (10/24/2016 09:49:Gretchen Mcdonald RN) COMMUNICATION Primary Language: Amharic (10/24/2016 09:49:Gretchen Mcdonald RN) Medical Tx Preferred Language: Amharic (10/24/2016 09:49:Gretchen Mcdonald RN) DEMOGRAPHICS Address: [address] [place] [id number] (09/03/2016 15:44:QS system process) Zipcode: [phone] (09/03/2016 15:44:QS system process) Home (09/03/2016 15:44:QS system process) SSN: [id number] (09/03/2016 15:44:QS system process) Next of Kin Name: ELFEGO KONG (09/03/2016 15:44:QS system process) Next of Kin (09/03/2016 15:44:QS system process) Next of Kin Relationship: SPO (09/03/2016 15:44:QS system process) Date of : 1990 (09/03/2016 15:44:QS system process) Marital Status: (09/03/2016 15:44:QS system process) Sex: Female (09/03/2016 15:44:QS system process) Race: (09/03/2016 15:44:QS system process) Ethnicity: Non- or (09/03/2016 15:44:QS system process) Rastafari: None (09/03/2016 15:44:QS system process) DRUG AND ALCOHOL USE Alcohol: No (10/24/2016 09:49:Gretchen Mcdonald RN) Cigarettes: Current Some Day Smoker. [id number] (10/24/2016 09:49:Gretchen Mcdonald RN) Average Cigarettes Smoked: < 5 per day (10/24/2016 09:49:Gretchen Mcdonald RN) Advised to Stop Smoking: Yes (10/24/2016 09:49:Gretchen Mcdonald RN) Marijuana: No (10/24/2016 09:49:Gretchen Mcdonald RN) Cocaine: No (10/24/2016 09:49:Gretchen Mcdonald RN) Other Illicit Drugs: No (10/24/2016 09:49:Gretchen Mcdonald RN) VACCINE HISTORY Influenza Vaccine: No (10/24/2016 09:49:Gretchen Mcdonald RN) Pneumococcal Vaccine: No (10/24/2016 09:49:Gretchen Mcdonald RN) Tetanus Vaccine: No (10/24/2016 09:49:Gretchen Mcdonald RN) Tdap Vaccine: No (10/24/2016 09:49:Gretchen Mcdonald RN) Hepatitis B Vaccine: No (10/24/2016 09:49:Gretchen Mcdonald RN) Litigation Manager: [facility] (10/24/2016 09:49:Gretchen Mcdonald RN) Feeding Preference: Breast (10/24/2016 09:49:Gretchen Mcdonald RN) Benefit of Breast Feed Discussed: Yes (10/24/2016 09:49:Gretchen Mcdonald RN) Circumcision: N/A (10/24/2016 09:49:Gretchen Mcdonald RN) Classes Attended: No (10/24/2016 09:49:Gretchen Mcdonald RN) Tubal Ligation: No (10/24/2016 09:49:Gretchen Mcdonald RN) Tubal Authorization Signed: N/A (10/24/2016 09:49:Gretchen Mcdonald RN) Consent: N/A (10/24/2016 09:49:Gretchen Mcdonald RN) Consent Signed: N/A (10/24/2016 09:49:Gretchen Mcdonald RN) Pain Management Plans: None (10/24/2016 09:49:Gretchen Mcdonald RN) Other Labor and Delivery Plans: wants to try without Pitocin (10/24/2016 09:49:Gretchen Mcdonald RN) Support Person: Elfego Kong (10/24/2016 09:49:Gretchen Mcdonald RN) Support Person Relationship: (10/24/2016 09:49:Gretchen Mcdonald RN) Cultural/Spritual Practice: No (10/24/2016 09:49:Gretchen Mcdonald RN) Spir/Cult Dietary Needs: No (10/24/2016 09:49:Gretchen Mcdonald RN) LIVING SITUATION/DISCHARGE PLAN Living Arrangements: House (10/24/2016 09:49:Gretchen Mcdonald RN) Adequate Access to:: Electric; Heat; Refrigeration; Plumbing/Running water; Phone; Transportation (10/24/2016 09:49:Gretchen Mcdonald RN) WIC Program: Yes (10/24/2016 09:49:Gretchen Mcdonald RN) 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: ALEN (10/24/2016 09:49:Gretchen Mcdonald RN) Person to Help after Discharge: ALEN (10/24/2016 09:49:Gretchen Mcdonald RN) Currently Using Commun Resources: No (10/24/2016 09:49:Gretchen Mcdonald RN) Outside Agency/Oil Winterizer: No (10/24/2016 09:49:Gretchen Mcdonald RN) Car Seat for Discharge: Yes (10/24/2016 09:49:Gretchen Mcdonald RN) Adoption Requested: No (10/24/2016 09:49:Gretchen Mcdonald RN) Pt Contact w/ Post : N/A (10/24/2016 09:49:Gretchen Mcdonald RN) LABS Blood Type: A Positive (10/24/2016 09:49:Gretchen Mcdonald RN) Antibody Screen: negative (10/24/2016 09:49:Gretchen Mcdonald RN) Hemoglobin: 12.0 (10/24/2016 09:56:QS system process) Hematocrit: 34.8 L (10/24/2016 09:56:QS system process) MCV: 85 (10/24/2016 09:56:QS system process) RPR/VDRL: Nonreactive (10/24/2016 09:49:Gretchen Mcdonald RN) HIV Exposure Test: Negative (10/24/2016 09:49:Gretchen Mcdonald RN) Hepatitis B: Negative (10/24/2016 09:49:Gretchen Mcdonald RN) Rubella: Immune (10/24/2016 09:49:Gretchen Mcdonald RN) Varicella: Non Susceptible (10/24/2016 09:49:Gretchen Mcdonald RN) OB/PREVIOUS HISTORY Previous Procedures: Ultrasound; NST (10/24/2016 09:49:Gretchen Mcdonald RN) Current Procedures: Ultrasound; NST (10/24/2016 09:49:Gretchen Mcdonald RN) History of Previous : No (10/24/2016 09:49:Gretchen Mcdonald RN) History of Gestational Diabetes: No (10/24/2016 09:49:Gretchen Mcdonald RN) History of PIH: Yes (10/24/2016 09:49:Gretchen Mcdonald RN) History of Incompetent Cervix: No (10/24/2016 09:49:Gretchen Mcdonald RN) History of Placenta Previa/Abrup: No (10/24/2016 09:49:Gretchen Mcdonald RN) History of Macrosomia: No (10/24/2016 09:49:Gretchen Mcdonald RN) History of IUGR: No (10/24/2016 09:49:Gretchen Mcdonald RN) History of Hemorrhage: No (10/24/2016 09:49:Gretchen Mcdonald RN) History of Loss/Stillborn: No (10/24/2016 09:49:Gretchen Mcdonald RN) History of : No (10/24/2016 09:49:Gretchen Mcdonald RN) History of D (Rh) Sensitization: No (10/24/2016 09:49:Gretchen Mcdonald RN) History Recurrent Loss/Stillborn: No (10/24/2016 09:49:Gretchen Mcdonald RN) History Depression/PP Depression: Yes (10/24/2016 09:49:Gretchen Mcdonald RN) History of Uterine Anomaly/TYREL: No (10/24/2016 09:49:Gretchen Mcdonald RN) History of Infertility: No (10/24/2016 09:49:Gretchen Mcdonald RN) History of ART Treatment: No (10/24/2016 09:49:Gretchen Mcdonald RN) History of TYREL: No (10/24/2016 09:49:Gretchen Mcdonald RN) Comments Obstetrical History: G1: 2007 G2: 2008 G3: 04/2009, induced pre-eclampsia G4: 01/2011 G5: SAB 2014 G6: 05/2015, HTN G7: current (10/24/2016 09:49:Gretchen Mcdonald RN) MEDICAL HISTORY Med Hx Diabetes: No (10/24/2016 09:49:Gretchen Mcdonald RN) Med Hx Hypertension: No (10/24/2016 09:49:Gretchen Mcdonald RN) Med Hx Heart Disease: No (10/24/2016 09:49:Gretchen Mcdonald RN) Med Hx Autoimmune Disorder: No (10/24/2016 09:49:Gretchen Mcdonald RN) Med Hx Kidney Disease/UTI: Yes (10/24/2016 09:49:Gretchen Mcdonald RN) Med Hx Neurologic/Epilepsy: No (10/24/2016 09:49:Gretchen Mcdonald RN) Med Hx Psychiatric Disorders: No (10/24/2016 09:49:Gretchen Mcdonald RN) Med Hx Hepatitis/Liver Disease: No (10/24/2016 09:49:Gretchen Mcdonald RN) Med Hx Varicosities/Phlebitis: No (10/24/2016 09:49:Gretchen Mcdonald RN) Med Hx Thyroid Dysfunction: No (10/24/2016 09:49:Gretchen Mcdonald RN) Med Hx Trauma/Violence: No (10/24/2016 09:49:Gretchen Mcdonald RN) Med Hx Blood Transfusion: No (10/24/2016 09:49:Gretchen Mcdonald RN) Med Hx Pulmonary (Asthma,TB): No (10/24/2016 09:49:Gretchen Mcdonald RN) Med Hx Breast: No (10/24/2016 09:49:Gretchen Mcdonald RN) 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 (10/24/2016 09:49:Gretchen Mcdonald RN) Med Hx Hospitalization/Surgery: Yes (10/24/2016 09:49:Gretchen Mcdonald RN) Med Hx Anesthetic Complications: No (10/24/2016 09:49:Gretchen Mcdonald RN) Med Hx Abnormal Pap Smear: No (10/24/2016 09:49:Gretchen Mcdonald RN) Other Medical Diseases: No (10/24/2016 09:49:Gretchen Mcdonald RN) Med Hx Significant Family Hx: No (10/24/2016 09:49:Gretchen Mcdonald RN) Details of Med/Surg Hx: tonsillectomy, D_C, tongue clipped for tongue tie, close spaced , chronic uti's, depression, depression, smoker, 2 LEEPS, CF carrier (10/24/2016 09:49:Gretchen Mcdonald RN) INFECTIOUS HISTORY Inf Hx Gonorrhea: No (10/24/2016 09:49:Gretchen Mcdonald RN) Inf Hx Chlamydia: No (10/24/2016 09:49:Gretchen Mcdonald RN) Inf Hx Syphilis: No (10/24/2016 09:49:Gretchen Mcdonald RN) Inf Hx HIV/AIDS: No (10/24/2016 09:49:Gretchen Mcdonald RN) Inf Hx Human Papilloma Virus: No (10/24/2016 09:49:Gretchen Mcdonald RN) Inf Hx Pt/Partner Genital Herpes: No (10/24/2016 09:49:Gretchen Mcdonald RN) Inf Hx Tuberculosis/Exposure: No (10/24/2016 09:49:Gretchen Mcdonald RN) Inf Hx Hepatitis B,C: No (10/24/2016 09:49:Gretchen Mcdonald RN) Inf Hx Rash or Viral Illness: No (10/24/2016 09:49:Gretchen Mcdonald RN) GENETIC HISTORY Gen Hx Age >=35 at KARIS: No (10/24/2016 09:49:Gretchen Mcdonald RN) Gen Hx Thalassemia: No (10/24/2016 09:49:Gretchen Mcdonald RN) Gen Hx Congenital Heart Defect: No (10/24/2016 09:49:Gretchen Mcdonald RN) Gen Hx Neural Tube Defect: No (10/24/2016 09:49:Gretchen Mcdonald RN) Gen Hx Down's Syndrome: No (10/24/2016 09:49:Gretchen Mcdonald RN) Gen Hx Merlin-Sachs: No (10/24/2016 09:49:Gretchen Mcdonald RN) Gen Hx Donn: No (10/24/2016 09:49:Gretchen Mcdonald RN) Gen Hx Familial Dysautonomia: No (10/24/2016 09:49:Gretchen Mcdonald RN) Gen Hx Sickle Cell Disease/Trait: No (10/24/2016 09:49:Gretchen Mcdonald RN) Gen Hx Hemophilia/Blood Disorder: No (10/24/2016 09:49:Gretchen Mcdonald RN) Gen Hx Muscular Dystrophy: No (10/24/2016 09:49:Gretchen Mcdonald RN) Gen Hx Cystic Fibrosis: Yes (10/24/2016 09:49:Gretchen Mcdonald RN) Gen Hx Huntingtons Chorea: No (10/24/2016 09:49:Gretchen Mcdonald RN) Gen Hx Mental Retardation/Autism: No (10/24/2016 09:49:Gretchen Mcdonald RN) Gen Hx Tested for Fragile X: No (10/24/2016 09:49:Gretchen Mcdonald RN) Gen Hx Other Inher/Chromosomal: No (10/24/2016 09:49:Gretchen Mcdonald RN) Gen Hx Maternal Metabolic DO: No (10/24/2016 09:49:Gretchen Mcdonald RN) Gen Hx Pt Father or FOB Defect: No (10/24/2016 09:49:Gretchen Mcdonald RN) Gen Hx Other Genetic History: No (10/24/2016 09:49:Gretchen Mcdonald RN) Gen Hx Drugs/Meds since LMP: Yes (10/24/2016 09:49:Gretchen Mcdonald RN) Gen Hx Medications: PNV, Nexium (10/24/2016 09:49:Gretchen Mcdonald RN) Details of Genetic History: Cousin has CF, pt is carrier, unknown if FOB is carrier (10/24/2016 09:49:Gretchen Mcdonald RN)
== END 2016-10-24 10:57 | disposition home or self-care (01) ==
LOC: LC 09:26
PROVIDERS: ATTEND Specialist
PROC: 4A1HXCZ Monitoring of Products of Conception, Cardiac Rate, External Approach (ICD-10-PCS; principal; 2016-10-24)
DX: O99.283 Endocrine, nutritional and metabolic diseases complicating pregnancy, third trimester (principal); E86.0 Dehydration; Z3A.37 37 weeks gestation of pregnancy
CPT/HCPCS: 36415; 59025; 80053; 80307; 81001; 83615; 84550; 85025

== ENCOUNTER 2016-10-31 10:26 | Outpatient (CLI) | payer MEDICAID ==
--- NOTE | 2016-10-31 11:54 | Non Stress Test Report ---
Non Stress Test Datetime Report Generated by CPN: 10/31/2016 11:54 DEMOGRAPHIC EGA NST: 38.1 INDICATION Indication for Study: Ordered by Provider VITAL SIGNS Temperature - NST: 98.2 MONITORING Monitor Explained: Monitor Explained; Test Explained; Patient Verbalized Understanding Time on Monitor: 10/31/2016 10:38 Time off Monitor: 10/31/2016 11:06 NST Duration: 28 NST INTERVENTIONS NST Interventions: PO Hydration; Reposition Patient (Annotations: Data stored by CPN on behalf of user) Physician Notified NST: Dr Purcell BABY A Movement : Present Contraction Frequency : 0 FHR Baseline : 120 Accelerations : 15X15 Decelerations : None Variability : Moderate 6-25bpm NST Review: Meets Criteria for Reactive NST NST Review and Verified By : MANJU TAVERA RN NST Results: Reactive NST REPORT Report Trigger: Send Report
== END 2016-10-31 12:03 | disposition home or self-care (01) ==
LOC: LC 10:26
PROVIDERS: ATTEND Obstetrics & Gynecology
PROC: 4A1HXCZ Monitoring of Products of Conception, Cardiac Rate, External Approach (ICD-10-PCS; principal; 2016-10-31)
DX: Z34.93 Encounter for supervision of normal pregnancy, unspecified, third trimester (principal); Z36 Encounter for antenatal screening of mother; Z3A.38 38 weeks gestation of pregnancy
CPT/HCPCS: 59025

== ENCOUNTER 2016-11-02 18:00 | Outpatient (CLI) | payer MEDICAID ==
[2016-11-02 19:13] LABS: APPEARANCE,URINE SLIGHTLY-CLOUDY; BILIRUBIN,URINE NEGATIVE (NEGATIVE); GLUCOSE, URINE NEGATIVE (NEGATIVE); KETONES,URINE NEGATIVE (NEGATIVE); LEUKOCYTE ESTERASE,URINE SMALL (NEGATIVE); NITRITE,URINE NEGATIVE (NEGATIVE); PROTEIN,URINE 30 mg/dL (NEGATIVE); URINE SPECIFIC GRAVITY 1.026
[2016-11-02 19:28] LABS: URINE BARBITURATES SCREEN NEGATIVE; URINE METHADONE SCREEN NEGATIVE; URINE OPIATES LOW NEGATIVE; URINE PHENCYCLIDINE SCREEN NEGATIVE
--- NOTE | 2016-11-02 20:01 | L&D Flow Sheet ---
LD Flowsheet Datetime Report Generated by CPN: 11/02/2016 20:00 Datetime: 11/02/2016 19:57 Additional Nursing Comments: Pt stable, ambulatory, leaving unit accompanied by friend (Joleen Ortega, RN) Datetime: 11/02/2016 19:55 Instructional Method: Verbal; Written; Patient Instructed; Family/Support Person Instructed; Verbalized Understanding (Joleen Ortega RN) Plan of Care: Plan of Care Discussed (Joleen Ortega RN) Teaching Comments: term labor instructions discussed; pt denies questions at this time. Will follow up at appointment tomorrow as scheduled (Joleen Ortega RN) Datetime: 11/02/2016 19:51 NBP Sys/Yolette/Mean (mmHg): 111 (QS system process) : 67 (QS system process) : 83 (QS system process) Pulse: 65 (QS system process) LaborFlag: Labor (QS system process) Datetime: 11/02/2016 19:50 Provider Reviewed Strip: Yes (Joleen Ortega RN) Communication Comments: Dr Spear on unit, reviewed strip. D/c orders received (Joleen Ortega RN) Datetime: 11/02/2016 19:20 Comments: Baby very active and kicking. (Sherita Valdez, RN) Patient Care Comments: Pt moved from left side to right side. (Sherita José Miguel, RN) Datetime: 11/02/2016 19:08 Pain Scale: 1 (Henrietta Camp, RNC) Pain Presence: Intermittent (Henrietta Camp, RNC) Pain Type: Cramping (Henrietta Camp, RNC) Pain Location: Abdomen (Henrietta Camp, RNC) Vaginal Bleeding: None (Henrietta Camp, RNC) Level of Consciousness: Fully Conscious (Henrietta Camp, RNC) DTR's/Clonus: DTRs 2+; No Clonus (Henrietta Camp, RNC) Headache: Denies (Henrietta Camp, RNC) Breath Sounds, Left: Clear and Equal (Henrietta Camp, RNC) Breath Sounds, Right: Clear and Equal (Henrietta Camp, RNC) Nausea/Vomiting: Denies (Henrietta Camp, RNC) RUQ Epigastric Pain: Denies (Henrietta Camp, RNC) LaborFlag: Labor (QS system process) Datetime: 11/02/2016 18:58 NBP Sys/Yolette/Mean (mmHg): 108 (QS system process) : 66 (QS system process) : 75 (QS system process) Pulse: 68 (QS system process) LaborFlag: Labor (QS system process) Datetime: 11/02/2016 18:28 NBP Sys/Yolette/Mean (mmHg): 115 (QS system process) : 66 (QS system process) : 80 (QS system process) Pulse: 78 (QS system process) LaborFlag: Labor (QS system process)
--- NOTE | 2016-11-02 20:25 | Non Stress Test Report ---
Non Stress Test Datetime Report Generated by CPN: 11/02/2016 20:21 DEMOGRAPHIC EGA NST: 38.3 INDICATION Indication for Study: Decreased Movement MONITORING Monitor Explained: Monitor Explained; Test Explained; Patient Verbalized Understanding Time on Monitor: 11/02/2016 18:24 Time off Monitor: 11/02/2016 19:52 NST Duration: 88 NST INTERVENTIONS Physician Notified NST: Dr Spear BABY A: [id number] BABY A Contraction Frequency : 0 FHR Baseline : 135 Accelerations : 15X15 Decelerations : None Variability : Moderate 6-25bpm NST Review: Meets Criteria for Reactive NST NST Review and Verified By : K Shannon RN NST COMMENTS NST Comments: Dr Spear reviewed strip; see flowsheet NST REPORT Report Trigger: Send Report
== END 2016-11-02 19:57 | disposition home or self-care (01) ==
LOC: LC 18:00
PROVIDERS: ATTEND Student in an Organized Health Care Education/Training Program
PROC: 4A1HXCZ Monitoring of Products of Conception, Cardiac Rate, External Approach (ICD-10-PCS; principal; 2016-11-02)
DX: O47.1 False labor at or after 37 completed weeks of gestation (principal); O36.8130 Decreased fetal movements, third trimester, not applicable or unspecified; Z3A.38 38 weeks gestation of pregnancy
CPT/HCPCS: 59025; 80307; 81005

== ENCOUNTER 2016-11-08 06:41 | Inpatient (IN) | payer MEDICAID ==
[2016-11-08] MEDS ORDERED: OXYTOCIN/NORMAL SALINE 1,000 ML IV PRN ×2 (07:11→18:36)
[2016-11-08] MEDS ORDERED: RINGERS SOLUTION,LACTATED 300 ML IV ONE (07:11)
[2016-11-08] MEDS ORDERED: RINGERS SOLUTION,LACTATED 1,000 ML IV PRN (07:11)
[2016-11-08] MEDS ORDERED: PENICILLIN G-K 5 MILLION UNIT VIAL ONE ×3 (07:43→16:22)
[2016-11-08 08:03] LABS: APPEARANCE,URINE CLOUDY; BILIRUBIN,URINE NEGATIVE (NEGATIVE); GLUCOSE, URINE NEGATIVE (NEGATIVE); KETONES,URINE NEGATIVE (NEGATIVE); LEUKOCYTE ESTERASE,URINE TRACE (NEGATIVE); NITRITE,URINE NEGATIVE (NEGATIVE); PROTEIN,URINE 30 mg/dL (NEGATIVE); URINE SPECIFIC GRAVITY 1.026; UROBILINOGEN,URINE NEGATIVE mg/dL (<2.0)
[2016-11-08 08:04] LABS: ABSOLUTE EOSINOPHILS # (AUTO) 0.1 10^3/uL (0.0-0.6); ABSOLUTE MONOCYTES (AUTO) 0.6 10^3/uL (0.1-1.4); ABSOLUTE NEUT (AUTO) 5.9 10^3/uL (1.7-8.2); BASOPHILS % (AUTO) 0.3 % (0-2); HEMATOCRIT 33.6 % (36.0-47.0); HEMOGLOBIN 11.5 g/dL (12.0-15.5); HGB HCT DIFFERENCE 0.9; MEAN CORPUSCULAR HEMOGLOBIN 28.4 pg (27.0-33.4); MEAN CORPUSCULAR HGB CONC 34.3 g/dL (32.0-36.0); MEAN CORPUSCULAR VOLUME 83 fl (80-97); MONOCYTES % (AUTO) 6.8 % (3-13); RED BLOOD COUNT 4.05 10^6/uL (3.72-5.28); RED CELL DISTRIBUTION WIDTH 13.4 % (11.5-14.0); SEGMENTED NEUTROPHILS % (AUTO) 68.9 % (42-78); WHITE BLOOD COUNT 8.5 10^3/uL (4.0-10.5)
[2016-11-08 08:12] LABS: URINE BARBITURATES SCREEN NEGATIVE; URINE METHADONE SCREEN NEGATIVE; URINE OPIATES LOW NEGATIVE; URINE PHENCYCLIDINE SCREEN NEGATIVE
[2016-11-08] MEDS ORDERED: OXYTOCIN/NORMAL SALINE 20 UNIT/1,000 ML RTUINJ ONE (08:17)
[2016-11-08 08:21] LABS: ALBUMIN 3.1 g/dL (3.5-5.0); ANION GAP 10 (5-19); BLOOD UREA NITROGEN 6 mg/dL (7-20); CARBON DIOXIDE 23 mmol/L (22-30); CHLORIDE 106 mmol/L (98-107); CREATININE RESULT 0.48 mg/dL (0.52-1.25); GLUCOSE 75 mg/dL (75-110); POTASSIUM 4.3 mmol/L (3.6-5.0); SODIUM 138.5 mmol/L (137-145); TOTAL PROTEIN 5.8 g/dL (6.3-8.2); URIC ACID 3.8 mg/dL (2.5-6.2)
[2016-11-08 08:23] LABS: ALANINE AMINOTRANSFERASE 24 U/L (9-52); ALKALINE PHOSPHATASE 95 U/L (38-126); ASPARTATE AMINO TRANSFERASE 15 U/L (14-36); BILIRUBIN,DIRECT 0.1 mg/dL (0.0-0.4); BILIRUBIN,TOTAL 0.8 mg/dL (0.2-1.3); LDH 357 U/L (313-618)
--- NOTE | 2016-11-08 14:36 | L&D Progress Notes ---
PROGRESS NOTES Datetime Report Generated by CPN: 11/08/2016 14:35 PROGRESS NOTE Procedures: Artificial ROM; Sterile Vag Exam Plan: Continue Present Management; Cervical Ripening Vital Signs : Reviewed; Within Normal Limits Comment: VE , 3/70/vtx/-1, AROM, clear fluid, Cat 1 strip declines epidural, may need Nubain POC discussed MEMBRANES Membranes: Ruptured FETUS A FHR - Baseline: 130 Variability: Moderate 6-25bpm Decelerations: None : 39.2 SIGNATURE SIGNATURE: [id number];[id number] SIGNATURE: [id number] SIGNATURE: [id number] SIGNATURE: [id number] Assignment: Elizabeth Figueredo MD Signature: with User ID: Car : with User ID: Car
[2016-11-08] MEDS ORDERED: NALBUPHINE HCL INJ 10 MG/1 ML AMPULE ONE (15:26)
[2016-11-08] MEDS ORDERED: ONDANSETRON HCL INJ/PF 4 MG/2 ML SDV ONE (17:15)
[2016-11-08] MEDS ORDERED: MISOPROSTOL 0.2 MG TABLET ONE (17:33)
[2016-11-08] MEDS ORDERED: LIDOCAINE 1% INJ-PF (10 MG/ML) 30 ML SDV ONE (17:33)
[2016-11-08] MEDS ORDERED: EPHEDRINE SULFATE INJ 50 MG/1 ML AMPULE ONE (18:15)
[2016-11-08] MEDS ORDERED: BUPIVACAINE HCL 0.25 % INJ/PF (2.5 MG/1 ML) 30 ML VIAL ONE (18:15)
[2016-11-08] MEDS ORDERED: FENTANYL/BUPIVACAINE/NS/PF 0 MCG/0 ML RTUINJ EPI ONE (18:15)
[2016-11-08] MEDS ORDERED: BENZOCAINE/MENTHOL AEROSOL SPRAY 56 ML TOP PRN (18:36)
[2016-11-08] MEDS ORDERED: ACETAMINOPHEN WITH CODEINE #3 TABLET PO PRN (18:36)
[2016-11-08] MEDS ORDERED: DIPH/PERTUSS(ACELL)/TETANUS VAC/PF 0.5 ML SYR (>=10YO) IM PRN (18:36)
[2016-11-08] MEDS ORDERED: ZOLPIDEM TARTRATE 5 MG TABLET PO PRN (18:36)
[2016-11-08] MEDS ORDERED: MEASLES,MUMPS&RUBELLA VACC/PF 0.5 ML VIAL SUBCUT PRN (18:36)
[2016-11-08] MEDS ORDERED: DIBUCAINE 1% OINTMENT 28 GM TP PRN (18:36)
--- NOTE | 2016-11-08 20:35 | Delivery Summary ---
Del Sum A-C Datetime Report Generated by CPN: 11/08/2016 20:35 DELIVERY PERSONNEL DELIVERY PERSONNEL: [id number];[id number];[id number];[id number] Delivery Doctor:: Elizabeth Figueredo MD Labor and Delivery Nurse:: MOODY Mcmullen Labor and Delivery Nurse:: Viktoriya Figueredo RN Strategic Sourcing Manager/LAUNDRY BAG PUNCH OPERATOR: Nereida Raza CNA II Additional Personnel: : Kaila Akhtar, RN MATERNAL INFORMATION Delivery Anesthesia: None Medications After Delivery: Pitocin Bolus-Please Comment Meds After Delivery Comment: 20 units Pitocin in 1 L NS bolusing per order Estimated Blood Loss (ml): 200 Maternal Complications: Precipitous Labor (<3hrs) Provider Comments: rapidly progressed in active labor. RN controlled delivery. No complications. Patient and baby tolerated well. LABOR SUMMARY EDC: 11/13/2016 00:00 No. Babies in Womb: 1 Attempted: No Labor Anesthesia: IV Sedation LABOR INFORMATION Reason for Induction: Chronic Hypertension; Maternal Diabetes Onset of Labor: 11/08/2016 15:00 Complete Dilatation: 11/08/2016 18:00 Oxytocin: Induction Group B Beta Strep: Positive Antibiotics # of Doses: 3 Antibiotics Time of Last Dose: 1606 Name of Antibiotic Given: penicillin Steroids Given: None Reason Steroids Not Administered: Not Applicable MEMBRANES Membranes Rupture Method: Artificial Rupture of Membranes: 11/08/2016 14:31 Length of Rupture (hr): 3.72 Amniotic Fluid Color: Clear Amniotic Fluid Amount: Small Amniotic Fluid Odor: None STAGES OF LABOR Stage 1 hr: 3 Stage 1 min: 0 Stage 2 hr: 0 Stage 2 min: 14 Stage 3 hr: 0 Stage 3 min: 10 Total Time in Labor hr: 3 Total Time in Labor min: 24 VAGINAL DELIVERY Episiotomy: None Laceration Extension: N/A Laceration Type: None Laceration Repair: Not Applicable Sponge Count Correct: N/A CSECTION DELIVERY Primary Indication: N/A Secondary Indication: N/A CSection Incidence: N/A Labor: N/A Elective: N/A CSection Incision: N/A BABY A INFORMATION Delivery Date/Time: 11/08/2016 18:14 Method of Delivery: Vaginal Born in Route : No : N/A Forceps: N/A Vacuum Extraction: N/A Shoulder Dystocia : No PRESENTATION/POSITION BABY A Presentation: Cephalic Cephalic Presentation: Vertex Vertex Position: Left Occipital Anterior Breech Presentation: N/A PLACENTA INFORMATION BABY A Placenta Delivery Time : 11/08/2016 18:24 Placenta Method of Delivery: Spontaneous Placenta Status: Delivered SCORES BABY A Heart Rate 1 min: >100 bpm Resp Effort 1 min: Good Cry Reflex Irritability 1 min: Cough or Sneeze or Pulls Away Muscle Tone 1 min: Active Motion Color 1 min: Blue/Pale Resuscitation Effort 1 min: Tactile Stimulation SCORE 1 MIN: 8 Heart Rate 5 min: >100 bpm Resp Effort 5 min: Good Cry Reflex Irritability 5 min: Cough or Sneeze or Pulls Away Muscle Tone 5 min: Active Motion Color 5 min: Body [place], Extremities Blue Resuscitation Effort 5 min: Tactile Stimulation SCORE 5 MIN: 9 INFORMATION BABY A Gestational Age at Delivery: 39.2 Gestational Status: Full Term- 39- 40.6 Weeks Infant Outcome : Liveborn Condition : Stable Sex: Female IDENTIFICATION BABY A Infant Verification Date/Time: 11/08/2016 18:14 ID Band Number: [id number] Mother's Name Verified: Yes Infant RN Verifying : Ynes PersonYANELI Additional Verifying Personnel: Jennifer Watt CNA WEIGHT/LENGTH BABY A Infant Birthweight (gm): 3020 Weight (lb): 6 Infant Weight (oz): 11 Infant Length (in): 19.00 Infant Length (cm): 48.26 CORD INFORMATION BABY A No. Cord Vessels: 3 Nuchal Cord : Around Neck x1, Loose Cord Blood Taken: Yes-For Storage (Mom's Blood type +) Infant Suction: Mouth; Nose ASSESSMENT BABY A Complications: None Physical Findings at Delivery: Within Normal Limits Respirations: Appears Normal Skin to Skin: Yes Skin to Skin Time (min): 60 Prize Fighter/ALS Called : No Care By: Blayne Figueredo, RN Transferred To: Remains with Mother BABY B INFORMATION : N/A SIGNATURES Signature: with User ID: DoAnderson
--- NOTE | 2016-11-08 20:35 | Admission Physical ---
Datetime Report Generated by N: 11/08/2016 20:35 CURRENT ADMISSION Hx Assessment: The History has been Reviewed and is Current (Annotations: Data stored by [facility] on behalf of user) Indication for Induction: Gestational HTN Admit Plan: Admit to Unit; Initiate Labor Induction Protocol ALLERGIES Medication Allergies: No Medication Allergies: nickel/MN/rash (11/02/2016) Medication Allergies: nickel/MN/rash (10/24/2016) Medication Allergies: nickel/MN/rash (06/09/2015) Latex: No Latex Allergies OBSTETRICAL HISTORY EDC: 11/13/2016 00:00 : 7 Para: 3 Term: 3 : 0 SAB: 3 IAB: 0 Ectopic: 0 Livin Cesareans: 0 VBACs: 0 Multiple Births: 0 Gestational Diabetes: No Rh Sensitization: No Incompetent Cervix: No TYREL: No Infertility: No ART Treatment: No Uterine Anomaly: No IUGR: No Hx Previous C/S: No Macrosomia: No Hx Loss/Stillborn: No PIH: Yes Hx : No Placenta Previa/Abruption: No Depression/PP Depression: Yes PTL/PROM: No Post Hemorrhage: No Current Procedures: Ultrasound; NST Obstetrical History Comments: G1: 2007 G2: 2008 G3: 04/2009, induced pre-eclampsia G4: 01/2011 G5: 2014 G6: 05/2015, HTN G7: current SEE RECORDS Alcohol: No Marijuana : No Cocaine: No Other Illicit Drugs: No Cigarettes: Current Some Day Smoker. 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 Heart Disease: No Hosp/Surgery: Yes Autoimmune Disorder: No Anesthetic Complications: No Kidney Disease: Yes Abnormal Pap Smear: No Neuro/Epilepsy: No Psychiatric Disorders: No Other Medical Diseases: No Hepatitis/Liver Disease: No Significant Family History: No Varicosities/Phlebitis: No Trauma/Violence : No Thyroid Dysfunction: No Medical History Comments: tonsillectomy, D_C, tongue clipped for tongue tie, close spaced , chronic uti's, depression, depression, smoker, 2 LEEPS, CF carrier INFECTIOUS HISTORY Gonorrhea: No Genital Herpes: No Chlamydia: No Tuberculosis: No Syphilis: No Hepatitis: No HIV/AIDS Exposure: No Rash or Viral Illness: No HPV: No PHYSICAL EXAM General: Normal HEENT: Normal Neurologic: Normal Thyroid: Normal Heart: Normal Lungs: Normal Breast: Deferred Back: Normal Abdomen: Normal Genitourinary Exam: Normal Extremities: Normal DTRs: Normal Pelvic Type: Adequate Physical Exam Comments: gestational hypertension CF carrier + GBS in urine GDM MEMBRANES Membranes: Ruptured FETUS A Monitoring: External US Variability: Moderate 6-25bpm Decelerations: None Admit Comment: Admit for IOL Tx GBS Cat 1 Strip Will ROM after 4 hours PLANS FOR LABOR AND DELIVERY Pain Management: None Feeding Preference: Breast Benefit of Breast Feed Discussed: Yes Circumcision: N/A INFORMED CONSENT Assignment: Elizabeth Figueredo MD Signature: with User ID: Car : with User ID: Car
[2016-11-08] MEDS: IBUPROFEN 800 MG TABLET PO SCH (21:12)
[2016-11-08] MEDS: ACETAMINOPHEN WITH CODEINE #3 TABLET PO PRN (22:30)
[2016-11-09] MEDS: IBUPROFEN 800 MG TABLET PO SCH ×3 (05:08→21:50)
[2016-11-09] MEDS: ACETAMINOPHEN WITH CODEINE #3 TABLET PO PRN ×2 (05:39→14:34)
[2016-11-09 08:02] LABS: HEMATOCRIT 30.5 % (36.0-47.0); HEMOGLOBIN 10.6 g/dL (12.0-15.5); HGB HCT DIFFERENCE 1.3; MEAN CORPUSCULAR HEMOGLOBIN 28.9 pg (27.0-33.4); MEAN CORPUSCULAR HGB CONC 34.6 g/dL (32.0-36.0); MEAN CORPUSCULAR VOLUME 84 fl (80-97); RED BLOOD COUNT 3.65 10^6/uL (3.72-5.28); RED CELL DISTRIBUTION WIDTH 13.5 % (11.5-14.0); WHITE BLOOD COUNT 10.2 10^3/uL (4.0-10.5)
--- NOTE | 2016-11-09 09:29 | PDOC PROGRESS REPORT ---
Subjective-OB Subjective: Post Delivery Day: 25 year old. Denies any needs at this time Physical Exam (OB) Vital Signs: Temp Pulse Resp BP Pulse Ox 97.7 F 63 16 114/78 99 11/09/16 07:28 11/09/16 07:28 11/09/16 07:28 11/09/16 07:28 11/09/16 07:28 Intake & Output 11/08/16 11/09/16 11/10/16 06:59 06:59 06:59 Weight 90 kg - Lochia Lochia Amount: Scant < 10 ml Lochia Color: Rubra/Red - Abdomen Description: Soft, Round Hernia Present: No Bowel Sounds: Normoactive Flatus Presence: Present Stool: No Fundal Description: Firm, Midline Fundal Height: u/u - u/2 Objective-Diagnostic Laboratory: 11/09/16 07:31 11/08/16 07:41 11/09/16 07:31 WBC 10.2 RBC 3.65 L Hgb 10.6 L Hct 30.5 L MCV 84 MCH 28.9 MCHC 34.6 RDW 13.5 Plt Count 222
[2016-11-09] MEDS: FERROUS SULFATE 325 MG TABLET PO SCH ×2 (10:32→17:41)
[2016-11-09] MEDS: PRENATAL VITAMIN W-O CA NO5/FE FUMARATE/FA CAPSULE PO SCH (10:32)
[2016-11-09] MEDS: SENNOSIDES/DOCUSATE 8.6-50 MG 1 EACH TABLET PO SCH (10:32)
[2016-11-09] MEDS: DOCUSATE SODIUM 100 MG CAPSULE PO SCH ×2 (10:32→17:41)
[2016-11-10] MEDS: IBUPROFEN 800 MG TABLET PO SCH (05:06)
[2016-11-10 08:33] VITALS: BP 121/68
[2016-11-10] MEDS: ACETAMINOPHEN WITH CODEINE #3 TABLET PO PRN (08:47)
--- NOTE | 2016-11-10 10:02 | PDOC PROGRESS REPORT ---
Subjective-OB Subjective: Post Delivery Day: 25 year old. Denies any needs at this time. Ready to go home. Physical Exam (OB) Vital Signs: Temp Pulse Resp BP Pulse Ox 98.1 F 59 L 16 121/68 99 11/10/16 08:01 11/10/16 08:01 11/10/16 08:01 11/10/16 08:01 11/10/16 08:01 Intake & Output 11/09/16 11/10/16 11/11/16 06:59 06:59 06:59 Weight 90 kg - Lochia Lochia Amount: Scant < 10 ml Lochia Color: Rubra/Red - Abdomen Description: Soft Hernia Present: No Bowel Sounds: Normoactive Flatus Presence: Present Stool: No Fundal Description: Firm, Midline Fundal Height: u/u - u/2 Objective-Diagnostic Laboratory: 11/09/16 07:31 11/08/16 07:41
--- NOTE | 2016-11-10 10:07 | PDOC DISCHARGE SUMMARY ---
Final Diagnosis Discharge Date: 11/10/16 - Final Diagnosis (1) Cystic fibrosis carrier Is this a current diagnosis for this admission?: Yes (2) Gestational hypertension Is this a current diagnosis for this admission?: Yes (3) History of depression Is this a current diagnosis for this admission?: Yes (4) Positive GBS test Is this a current diagnosis for this admission?: Yes (5) Is this a current diagnosis for this admission?: Yes (6) Smoker Is this a current diagnosis for this admission?: Yes (7) Elevated BP Is this a current diagnosis for this admission?: Yes (8) Vaginal delivery Is this a current diagnosis for this admission?: Yes Discharge Data - Discharge Medication Home Medications: Esomeprazole Magnesium [Nexium] 1 cap PO ASDIR PRN 10/24/16 Gestational Age: 39.2 wks Reason(s) for Admission: Induction of Labor, [facility] Procedures: Ultrasound Intrapartum Procedure(s): Spontaneous Vaginal Delivery - Data Baby 1 Female at 1 minute: 8 at 5 minutes: 9 Weight: 3.033 kg Home with Mother: Yes Complications: No - Diagnosis Test Laboratory: Temp Pulse Resp BP Pulse Ox 98.1 F 59 L 16 121/68 99 11/10/16 08:01 11/10/16 08:01 11/10/16 08:01 11/10/16 08:01 11/10/16 08:01 11/08/16 11/08/16 11/09/16 06:54 07:41 07:31 RBC 4.05 3.65 L Hgb 11.5 L 10.6 L Hct 33.6 L 30.5 L Urine Opiates Screen NEGATIVE - Discharge information/Instructions Discharge Activity: Activity As Tolerated, Balance Activity w/Rest, No Lifting Over 10 Pounds, Pelvic Rest, Slowly Increase Activity, No tub bath Discharge Diet: Regular Disposition: HOME, SELF-CARE Follow up with: [facility] in: 4, Weeks
[2016-11-10] MEDS: FERROUS SULFATE 325 MG TABLET PO SCH (11:36)
[2016-11-10] MEDS: PRENATAL VITAMIN W-O CA NO5/FE FUMARATE/FA CAPSULE PO SCH (11:36)
[2016-11-10] MEDS: SENNOSIDES/DOCUSATE 8.6-50 MG 1 EACH TABLET PO SCH (11:36)
[2016-11-10] MEDS: DOCUSATE SODIUM 100 MG CAPSULE PO SCH (11:36)
== END 2016-11-10 12:55 | disposition home or self-care (01) | DRG 775 ==
LOC: LR 06:41 → 2S 20:28
PROVIDERS: ADMIT Obstetrics & Gynecology; ATTEND Obstetrics & Gynecology
PROC: 10E0XZZ Delivery of Products of Conception, External Approach (ICD-10-PCS; principal; 2016-11-08)
PROC: 3E0P7GC Introduction of Other Therapeutic Substance into Female Reproductive, Via Natural or Artificial Opening (ICD-10-PCS; 2016-11-08)
PROC: 10907ZC Drainage of Amniotic Fluid, Therapeutic from Products of Conception, Via Natural or Artificial Opening (ICD-10-PCS; 2016-11-08)
PROC: 4A1HXCZ Monitoring of Products of Conception, Cardiac Rate, External Approach (ICD-10-PCS; 2016-11-08)
DX: O13.4 Gestational [pregnancy-induced] hypertension without significant proteinuria, complicating childbirth (principal); O99.824 Streptococcus B carrier state complicating childbirth; O99.334 Smoking (tobacco) complicating childbirth; F17.210 Nicotine dependence, cigarettes, uncomplicated; O62.3 Precipitate labor; O24.429 Gestational diabetes mellitus in childbirth, unspecified control; O69.81X0 Labor and delivery complicated by cord around neck, without compression, not applicable or unspecified; Z14.1 Cystic fibrosis carrier; Z3A.39 39 weeks gestation of pregnancy; Z37.0 Single live birth
CPT/HCPCS: 36415; 80053; 80307; 81001; 83615; 84550; 85025; 85027; 86592; 86850; 86900; 86901; J2300; J2405; J2540; J2590; J3490

== ENCOUNTER 2017-08-03 10:27 | Day surgery (SDC) | payer MEDICAID, OTHER ==
[~2017-08-03 10:27] MED LIST: DIPHENHYDRAMINE HCL 50 MG/ML VIAL ONE; EPINEPHRINE INJ 1 MG/10 ML DISP.SYRIN ONE; FENTANYL CITRATE INJ/PF 100 MCG/2 ML AMPUL ONE; FLUMAZENIL INJ 0.5 MG/5 ML VIAL ONE; GLUCAGON,HUMAN RECOMB 1 MG INJ ONE; NALOXONE HCL INJ/PF 0.4 MG/1 ML SDV ONE; ONDANSETRON HCL INJ/PF 4 MG/2 ML SDV ONE
[2017-08-03] MEDS: MIDAZOLAM 2 MG/2 ML INJ ONE ×3 (11:16→11:24)
--- NOTE | 2017-08-03 11:54 | Operative Report ---
Operative Report DATE OF SURGERY: 08/03/17 Operative Report: The risks benefits and alternatives of the procedure explained to the patient in detail and informed consent is obtained.A GIF Olympus video scope was inserted into the patient's mouth and hypopharynx, the esophagus is identified intubated and insufflated, the scope was then advanced through the esophagus stomach and duodenum, retroflexion maneuver is done, the esophagus stomach and first and second portions of the duodenum examined PREOPERATIVE DIAGNOSIS: Epigastric pain, dyspepsia POSTOPERATIVE DIAGNOSIS: Duodenitis. Gastritis status post biopsy rule out Helicobacter pylori. Esophagitis. Hiatal hernia OPERATION: EGD with biopsy SURGEON: JACKIE LOVE ANESTHESIA: Moderate Sedation - 6 mg of Versed, 100 mcg of fentanyl. Conscious sedation monitoring time 30 minutes. TISSUE REMOVED OR ALTERED: As noted above. COMPLICATIONS: None. ESTIMATED BLOOD LOSS: None. INTRAOPERATIVE FINDINGS: As noted above. PROCEDURE: Patient tolerated procedure well. No immediate postprocedure comp occasions are noted. Patient discharged in good condition. Discharge date 08/03/2017. Discharge diet: Regular. Discharge activity: Regular. 2-3 week follow-up to discuss findings. Patient is instructed call the office or proceed to the emergency room should there be any further problems or questions. We will wait on pathology.
[2017-08-03 12:46] VITALS: BP 106/75
== END 2017-08-03 12:50 | disposition home or self-care (01) ==
LOC: END 10:27
PROVIDERS: ATTEND Internal Medicine Gastroenterology
PROC: 0DB68ZX Excision of Stomach, Via Natural or Artificial Opening Endoscopic, Diagnostic (ICD-10-PCS; principal; 2017-08-03 11:00)
DX: K29.80 Duodenitis without bleeding (principal); K29.50 Unspecified chronic gastritis without bleeding; K21.0 Gastro-esophageal reflux disease with esophagitis; K44.9 Diaphragmatic hernia without obstruction or gangrene; F17.210 Nicotine dependence, cigarettes, uncomplicated; Z79.51 Long term (current) use of inhaled steroids; Z79.899 Other long term (current) drug therapy
CPT/HCPCS: 43239; 88342 ×2; 88305 ×2; J2250; J3010; J0171; J1200; J1610; J2310; J2405; J3490

== ENCOUNTER 2017-08-20 08:21 | Day surgery (SDC) | payer OTHER ==
[~2017-08-20 08:21] MED LIST changes: -DIPHENHYDRAMINE HCL 50 MG/ML VIAL ONE; -EPINEPHRINE INJ 1 MG/10 ML DISP.SYRIN ONE; -FENTANYL CITRATE INJ/PF 100 MCG/2 ML AMPUL ONE; -FLUMAZENIL INJ 0.5 MG/5 ML VIAL ONE; -GLUCAGON,HUMAN RECOMB 1 MG INJ ONE; -NALOXONE HCL INJ/PF 0.4 MG/1 ML SDV ONE; -ONDANSETRON HCL INJ/PF 4 MG/2 ML SDV ONE; +PROPOFOL INJ 200 MG/20 ML VIAL IV ONE
[2017-08-20 10:25] VITALS: BP 105/68
--- NOTE | 2017-08-20 12:19 | Operative Report ---
Operative Report DATE OF SURGERY: 08/20/17 Operative Report: The risks, benefits and alternatives of the procedure including risks of bleeding, perforation requiring surgery are explained to the patient in detail and informed consent was obtained. Patient was taken back to the endoscopy suite and placed in the left, lateral decubital position. Timeout was called. Propofol medications administered. A rectal examination is done which did not reveal any masses, tears or fissures. An Olympus videoscope was inserted into the patient's rectum. The scope was then carefully advanced all the way to the cecum. The cecum was identified by the usual anatomical landmarks including the ileocecal valve as well as the appendiceal office. Photodocumentation is obtained. Prep is good. Intubation of the terminal ileum is done. The scope was then sequentially pulled back via the various segments of the colon including the ascending colon, hepatic flexure, transverse colon, splenic flexure, descending colon and finding to the rectosigmoid portions of the colon. Retroflexion maneuver is performed. PREOPERATIVE DIAGNOSIS: Change in bowel habits, right lower quadrant pain, rule out Crohn's disease POSTOPERATIVE DIAGNOSIS: Bowel terminal ileitis status post biopsy rule out Crohn's disease OPERATION: Colonoscopy with biopsy SURGEON: JACKIE LOVE ANESTHESIA: LMAC TISSUE REMOVED OR ALTERED: As noted above. COMPLICATIONS: None. ESTIMATED BLOOD LOSS: None. INTRAOPERATIVE FINDINGS: As noted above. PROCEDURE: Patient tolerated procedure well. No immediate postprocedure complications are noted. Patient discharged in good condition. Discharge date 08/20/2017. Discharge diet: Regular. Discharge activity: Regular. 2-3 week follow-up to discuss findings. Patient is instructed to call the office or proceed to the emergency room should there be any further problems or questions. We will wait on pathology.
== END 2017-08-20 10:20 | disposition home or self-care (01) ==
LOC: END 08:21
PROVIDERS: ATTEND Internal Medicine Gastroenterology
PROC: 0DBB8ZX Excision of Ileum, Via Natural or Artificial Opening Endoscopic, Diagnostic (ICD-10-PCS; principal; 2017-08-20 10:30)
DX: K52.9 Noninfective gastroenteritis and colitis, unspecified (principal); K62.89 Other specified diseases of anus and rectum; K92.1 Melena; E16.2 Hypoglycemia, unspecified; I10 Essential (primary) hypertension; F17.210 Nicotine dependence, cigarettes, uncomplicated; Z79.51 Long term (current) use of inhaled steroids; Z79.899 Other long term (current) drug therapy
CPT/HCPCS: 45380; 88305 ×2; J2704; 811